=== PATIENT | female | born 1985 | race African-American/Black ===

== ENCOUNTER 2020-02-15 01:08 | Emergency (ER) | payer MEDICAID, SELFPAY ==
[2020-02-15] VITALS (12 sets, daily range): BP systolic 104–118; BP diastolic 72–79; PULSE 64–81; RESP 13–18; TEMP 36.1–36.9; O2SAT 98–100; BMI 23.3
--- NOTE | 2020-02-15 01:30 | ED.VIS.GEN ---
History of Present Illness Chief Complaint: Mental Health Informant: Patient, Family Narrative: 34-year-old female presents to the emergency department with her sister for mental health evaluation. Patient is seen at the counseling center. She tells me she has a history of anxiety. Her sister tells me that the patient has had declining mental health over the past month. She last saw her counselor a week ago. Family is describing erratic behavior and report that the patient is causing emotional and physical disturbances in the house. She has threatened to kill her sister. Family also reports suicidal thoughts. Patient does not endorse that to me. Past Medical History - Allergies and Home Meds Allergies/Adverse Reactions: Allergies lactose Adverse Reaction (Verified 02/15/20 01:15) Diarrhea Primary Care Physician: Luciano Whitehead MD [Primary Care Provider] - Prior records reviewed: Yes Surgical History: noncontributory Lives: With Family Smoking Status: Former smoker Drugs: None Review of Systems General: Denies: Chills, Fever, Sweats Eyes: Denies: Visual changes - bilaterally, Diplopia ENT: Denies: Rhinorrhea, Sore throat Cardiovascular: Denies: Chest pain, Palpitations Respiratory: Denies: Dyspnea, Cough, Dyspnea on exertion Gastrointestinal: Reports: Constipation. Denies: Abdominal pain, Nausea, Vomiting, Diarrhea, Melena, Hematochezia Genitourinary: Denies: Dysuria, Hematuria, Frequency Musculoskeletal: Denies: Back pain, Extremity Pain Skin: Denies: Rash, Wounds Neurological: Denies: Headache, Weakness, Numbness Psych: Reports: Depression, Anxiety, - - Insomnia. Denies: Suicidal thoughts, Suicidal ideations Physical Exam Vital Signs/Narrative: Vital Signs Temp Pulse Resp Pulse Ox 02/15/20 01:09 97.0 F L 69 16 100 Inital Vital Signs reviewed: Yes General: Well nourished, Well developed, No Acute Distress, - - Patient appears internally stimulated Head: Normocephalic, Atraumatic Eyes: Perrl, EOMI ENT: Moist mucous membranes, No rhinorrhea Neck: Supple, Nontender Cardiovascular: Regular rate, Regular rhythm, No murmurs Respiratory: No distress, CTA bilaterally, Chest nontender Abdomen: Soft, Nontender, Nondistended, Normal bowel sounds Back: Nontender, Normal Inspection Extremities: Nontender, No edema Skin: Normal color, No rash Neurological: Alert, Oriented x3, Cranial nerves II-XII grossly intact, Normal Strength, Normal Sensation Psychological: - - Blunted affect Diagnostic/Tx/Re-eval Laboratory Last Values WBC 4.4 K/mm3 (4.4-11.0) 02/15/20 01:25 RBC 4.23 M/mm3 (4.2-5.4) 02/15/20 01:25 Hgb 9.2 g/dL (12.0-15.0) L 02/15/20 01:25 Hct 31.4 % (37-47) L 02/15/20 01:25 MCV 74.2 fL (81-99) L 02/15/20 01:25 MCH 21.7 pg (27.0-32.0) L 02/15/20 01:25 MCHC 29.3 g/dL (32-36) L 02/15/20 01:25 RDW Std Deviation 52.5 fl (35.1-43.9) H 02/15/20 01:25 RDW Coeff of Dina 19.7 % (11.6-14.6) H 02/15/20 01:25 Plt Count 244 K/mm3 (150-450) 02/15/20 01:25 MPV 9.6 fl (6.2-12.0) 02/15/20 01:25 Immature Gran % (Auto) 0.200 % (0.0-0.9) 02/15/20 01:25 Neut % (Auto) 38.6 % (47-70) L 02/15/20 01:25 Lymph % (Auto) 46.3 % (19-41) H 02/15/20 01:25 [place] % (Auto) 11.7 % (0-10) H 02/15/20 01:25 Eos % (Auto) 2.7 % (0-5) 02/15/20 01:25 Baso % (Auto) 0.5 % (0-1) 02/15/20 01:25 Absolute Neuts (auto) 1.7 X10^3/uL (2.0-7.7) L 02/15/20 01:25 Absolute Lymphs (auto) 2.05 X10^3/uL (0.83-4.51) 02/15/20 01:25 Nucleated RBC % 0 % (0-5) 02/15/20 01:25 Sodium 139 mmol/L (136-145) 02/15/20 01:25 Potassium 3.9 mmol/L (3.5-5.1) 02/15/20 01:25 Chloride 108 mmol/L (98-107) H 02/15/20 01:25 Carbon Dioxide 26.0 mmol/L (21.0-32.0) 02/15/20 01:25 Anion Gap 5 (5-15) 02/15/20 01:25 BUN 7 mg/dL (7-18) 02/15/20 01:25 Creatinine 0.80 mg/dL (0.55-1.02) 02/15/20 01:25 Estim Creat Clear Calc 94.51 ml/min 02/15/20 01:25 Est GFR (MDRD) Af Amer 106 mL/min (>60) 02/15/20 01:25 Est GFR (MDRD) Non-Af 88 mL/min (>60) 02/15/20 01:25 BUN/Creatinine Ratio 8.8 RATIO (10-20) L 02/15/20 01:25 Glucose 102 mg/dL (74-106) 02/15/20 01:25 Calcium 8.9 mg/dL (8.5-10.1) 02/15/20 01:25 Total Bilirubin 0.20 mg/dL (0.20-1.00) 02/15/20 01:25 AST 11 U/L (15-37) L 02/15/20 01:25 ALT 15 U/L (13-56) 02/15/20 01:25 Alkaline Phosphatase 74 U/L (45-117) 02/15/20 01:25 Total Protein 7.4 g/dL (6.4-8.2) 02/15/20 01:25 Albumin 3.8 g/dL (3.2-5.0) 02/15/20 01:25 Globulin 3.6 g/dL (2.2-4.2) 02/15/20 01:25 Albumin/Globulin Ratio 1.1 RATIO (0.9-2.4) 02/15/20 01:25 Serum , Qual NEGATIVE Negative 02/15/20 01:25 Urine Color Yellow (Yellow) 02/15/20 02:15 Urine Clarity Clear (Clear) 02/15/20 02:15 Urine pH 7.0 (5.0 - 8.0) 02/15/20 02:15 Ur Specific [place] 1.005 (1.002-1.030) 02/15/20 02:15 Urine Protein Negative mg/dl (Negative) 02/15/20 02:15 Urine Glucose (UA) Normal mg/dl (Normal) 02/15/20 02:15 Urine Ketones Negative mg/dl (Negative) 02/15/20 02:15 Urine Occult Blood Negative /ul (Negative) 02/15/20 02:15 Urine Nitrite Negative (Negative) 02/15/20 02:15 Urine Bilirubin Negative mg/dL (Negative) 02/15/20 02:15 Urine Urobilinogen Normal mg/dl (Normal) 02/15/20 02:15 Ur Leukocyte Esterase Negative /ul (Negative) 02/15/20 02:15 Urine RBC 0 SEEN /hpf (0-5) 02/15/20 02:15 Urine WBC 0 SEEN /hpf (0-5) 02/15/20 02:15 Ur Squamous Epith Cells 0 SEEN /hpf (5-10) 02/15/20 02:15 Urine Bacteria 0 SEEN /hpf (None Seen) 02/15/20 02:15 Urine Mucus 0 SEEN /hpf (<or=2+) 02/15/20 02:15 Urine Opiates Screen NEGATIVE (< 300 ng/mL) 02/15/20 02:15 Urine Methadone Screen NEGATIVE (< 300 ng/mL) 02/15/20 02:15 Ur Barbiturates Screen NEGATIVE (< 200 ng/mL) 02/15/20 02:15 Ur Phencyclidine Scrn NEGATIVE (< 25 ng/mL) 02/15/20 02:15 Ur Amphetamines Screen NEGATIVE (<1000 ng/mL) 02/15/20 02:15 U Methamphetamin-MDMA NEGATIVE (< 500 ng/mL) 02/15/20 02:15 U Benzodiazepines Scrn NEGATIVE (< 200 ng/mL) 02/15/20 02:15 Urine Cocaine Screen NEGATIVE (< 300 ng/mL) 02/15/20 02:15 U Cannabinoids Screen NEGATIVE (< 50 ng/mL) 02/15/20 02:15 Ur Drug Screen Comment 02/15/20 02:15 Ethyl Alcohol < 3.0 mg/dL 02/15/20 01:25 - Medical Decision Making Psychiatric screening labs were obtained. She is cleared for crisis evaluation. ED Disposition - Plan for ED Patient: Diagnosis: Depression, Anxiety, Shawna Referrals: Luciano Whitehead MD [Primary Care Provider] -
[2020-02-15 01:33] LABS: Absolute Lymphocyte Count 2.05 X10^3/uL (0.83-4.51); Absolute Neutrophil Count 1.7 X10^3/uL (2.0-7.7); Basophil# 0.02 X10^3/uL; Basophil% 0.5 % (0-1); Eosinophil# 0.12 X10^3/uL; Eosinophils% 2.7 % (0-5); Hematocrit 31.4 % (37-47); Hemoglobin 9.2 g/dL (12.0-15.0); Lymphocyte # 2.05 X10^3/ul (4.0); Lymphocyte % 46.3 % (19-41); Mean Corp Hgb Conc 29.3 g/dL (32-36); Mean Corpuscular Hgb 21.7 pg (27.0-32.0); Mean Corpuscular Volume 74.2 fL (81-99); Mean Platelet Vol. 9.6 fl (6.2-12.0); Monocyte# 0.52 X10^3/uL; Monocyte% 11.7 % (0-10); NRBC Flagged by Analyzer 0 % (0-5); Neutrophil # 1.71 X10^3/uL (2.7-7.7); Neutrophil % 38.6 % (47-70); Platelet Count 244 K/mm3 (150-450); RBC Distribution Width CV 19.7 % (11.6-14.6); RBC Distribution Width SD 52.5 fl (35.1-43.9); Red Blood Count 4.23 M/mm3 (4.2-5.4); White Blood Count 4.4 K/mm3 (4.4-11.0)
[2020-02-15 02:16] LABS: Internal QC Validated? YES +Cl - CLEAR BKGD; Pregnancy, Serum, hCG Quali. NEGATIVE Negative
[2020-02-15 02:18] LABS: Bacteria 0 SEEN /hpf (None Seen); Mucous, Urine 0 SEEN /hpf (<or=2+); Red Blood Cells-Urine 0 SEEN /hpf (0-5); Squamous Epithelial Cells - UA 0 SEEN /hpf (5-10); White Blood Cells 0 SEEN /hpf (0-5)
[2020-02-15 02:20] LABS: Alcohol, Blood (Medical)-Serum < 3.0 mg/dL
[2020-02-15 02:24] LABS: ALB/GLOB Ratio 1.1 RATIO (0.9-2.4); AST(SGOT) 11 U/L (15-37); Alanine Aminotransfer ALT/SGPT 15 U/L (13-56); Albumin, Serum 3.8 g/dL (3.2-5.0); Alkaline Phosphatase 74 U/L (45-117); Anion Gap 5 (5-15); BUN 7 mg/dL (7-18); BUN/Creat Ratio 8.8 RATIO (10-20); Calcium,Total 8.9 mg/dL (8.5-10.1); Chloride 108 mmol/L (98-107); EST Glomerular Filtration Rate 88 mL/min (>60); Est Glom Filt Rate - Afr Amer 106 mL/min (>60); Estimated Creatinine Clearance 94.51 ml/min; Globulin 3.6 g/dL (2.2-4.2); Glucose 102 mg/dL (74-106); Potassium 3.9 mmol/L (3.5-5.1); Protein, Total 7.4 g/dL (6.4-8.2); Sodium Level 139 mmol/L (136-145)
[2020-02-15 02:24] LABS: Color, Urine Yellow (Yellow); Glucose, Dipstick Normal (Normal); Ketone-Dipstick Negative (Negative); Leukocyte Esterase-Dipstick Negative /ul (Negative); Nitrite-Dipstick Negative (Negative); Occult Blood-Urine Negative /ul (Negative); Protein-Dipstick Negative (Negative); Specific Gravity, Urine 1.005 (1.002-1.030); Urine Bilirubin Dipstick Negative (Negative); Urine Clarity Clear (Clear); Urine Urobilinogen Normal (Normal)
[2020-02-15 02:27] LABS: Vista UDS pH Range 7
[2020-02-15 02:37] LABS: Amphetamine Urine VISTA NEGATIVE (<1000 ng/mL); Barbiturate Urine VISTA NEGATIVE (< 200 ng/mL); Benzodiazepine Urine VISTA NEGATIVE (< 200 ng/mL); Cocaine Urine VISTA NEGATIVE (< 300 ng/mL); Ecstacy Urine VISTA NEGATIVE (< 500 ng/mL); Methadone Urine VISTA NEGATIVE (< 300 ng/mL); PCP Urine VISTA NEGATIVE (< 25 ng/mL); THC Urine VISTA NEGATIVE (< 50 ng/mL)
--- NOTE | 2020-02-15 10:46 | NURSING ---
PT IS PENDING ACCEPTANCE WITH [facility]
== END 2020-02-15 14:43 ==
PROVIDERS: Emergency Provider Emergency Medicine; PCP Family Medicine
DX: F32.9 Major depressive disorder, single episode, unspecified (principal); F41.9 Anxiety disorder, unspecified; Z79.899 Other long term (current) drug therapy; Z87.891 Personal history of nicotine dependence
CPT/HCPCS: 36415; 80053; 80307; 80320; 81001; 84703; 85025; 99284; G0480

== ENCOUNTER 2020-02-28 20:00 | Emergency (ER) | payer MEDICAID, SELFPAY ==
[2020-02-15 01:09] VITALS: BMI 23.3
[2020-02-28 20:01] VITALS: BP 123/79; PULSE 89; RESP 16; TEMP 35.8; O2SAT 100; BMI 22.1
--- NOTE | 2020-02-28 20:32 | ED.DCSUM_ITS ---
- ER Visit Summary Date of Service: 02/28/20 Chief Complaint: Tired History of Present Illness: The patient is a [address] Whitehead in a counseling center. Last week she was admitted to [facility] and was placed on propranolol for a high heart rate. She is taking 20 mg twice a day. Her last dose was at 11:00 this morning. She reports that she feels very tired and fatigued after taking this. She denies feeling depressed. No suicidal or homicidal ideation. No auditory hallucinations. Review of systems: General: No fever, chills, cold sweats. Cardiovascular: No chest pain, palpitations. Respiratory: No cough, shortness of breath, dyspnea on exertion. Gastrointestinal: No abdominal pain, nausea, vomiting, diarrhea, melena, or hematochezia. Genitourinary: No dysuria, frequency, hematuria. Skin: No rash. Neuro: No headache, numbness, weakness. Physical Examination: Vitals: Stable. Afebrile. General: Well-nourished and well-developed. Head: Normocephalic atraumatic. Neck: Supple, no lymphadenopathy. No JVD. Nontender. Cardiovascular: Regular rate and rhythm. No murmurs. Respiratory: No respiratory distress. Clear to auscultation bilaterally. Abdominal: Soft, nontender, nondistended, normal bowel sounds. No guarding, rebound, or peritoneal signs. Back: Nontender. Extremities: Nontender, no edema. Skin: Normal color, no rash. Neurologic: Alert and oriented ?3. Cranial nerves II through XII are intact. Normal strength and sensation. Psych: Flat affect. Emergency Department Course and Treatment: I reviewed propranolol and it does show fatigue is one of the common adverse reactions to this. Also increasing depression as a side effect of this as well. Given the patient's history of depression and suicidal ideation I do not think the propranolol is a good choice for a beta-myles for her if she needs to be on 1. I discussed this with the patient. I reviewed her vital signs from her last visit and her heart rate was in the 70s to 80s. At this time I am going to stop the propranolol and not put her on another beta-myles. Treatment Plan: Patient will be discharged with instructions to throw the propranolol away. Follow-up with her primary care physician in 3 days for another exam. Return to the emergency department for any worsening symptoms. Disposition: To home in improved and stable condition. Impression: 1. Adverse reaction to propranolol. This note was generated with Grabbed dictation software. It may contain incorrect words, spelling, and punctuation that were not noted in review of the chart prior to signing ED Disposition - Plan for ED Patient: Instructions: ED Drug React Adverse Other Referrals: Luciano Whitehead MD [Primary Care Provider] - 3-5 Days Additional Instructions: Stop taking propranolol and throw your bottle away.
== END 2020-02-28 21:24 | disposition home or self-care (01) ==
LOC: ED 20:33
PROVIDERS: Emergency Provider Emergency Medicine; PCP Family Medicine
DX: R53.83 Other fatigue (principal); T44.7X5A Adverse effect of beta-adrenoreceptor antagonists, initial encounter; Y92.9 Unspecified place or not applicable; F32.9 Major depressive disorder, single episode, unspecified; F41.9 Anxiety disorder, unspecified; Z79.899 Other long term (current) drug therapy
CPT/HCPCS: 99282; A4216

== ENCOUNTER 2020-03-05 03:52 | Emergency (ER) | payer MEDICAID, SELFPAY ==
[2020-03-05 03:54] VITALS: BP 120/72; PULSE 111; RESP 20; TEMP 37.3; O2SAT 100; BMI 22.4
--- NOTE | 2020-03-05 04:03 | CT_ITS ---
STUDY: CT BRAIN WITHOUT CONTRAST REASON FOR EXAM: Female, 35 years old. SEIZURE-HAS HX AND TAKES MEDS RADIATION DOSAGE (If Supplied By Facility): CTDIvol = ( 44.99 ) mGy, DLP = ( 829.85 ) mGycm TECHNIQUE: Transaxial CT imaging of the brain was performed without administration of intravenous contrast material. Individualized dose optimization techniques were used for this CT. COMPARISON: No relevant priors. FINDINGS: Normal soft tissue structures. Normal calvarium. Normal size ventricles and extra-axial spaces for the patient''s age. Normal white matter tracts of the cerebral hemispheres. Normal basal ganglia and thalami. Normal brainstem. Normal cerebellum. There is no intracranial hemorrhage. There are no findings of an acute ischemic infarction. Normal visualized paranasal sinuses. CT/Brain/Head without Contrast IMPRESSION: Normal unenhanced CT scan of the brain. Electronically Signed: Shana Steiner, at 5:26 EST Tel , Service support ,
[2020-03-05 04:17] LABS: Absolute Lymphocyte Count 1.62 X10^3/uL (0.83-4.51); Basophil# 0.02 X10^3/uL; Basophil% 0.4 % (0-1); Eosinophil# 0.07 X10^3/uL; Eosinophils% 1.4 % (0-5); Hematocrit 32.6 % (37-47); Hemoglobin 9.5 g/dL (12.0-15.0); Lymphocyte # 1.62 X10^3/ul (4.0); Lymphocyte % 31.5 % (19-41); Mean Corp Hgb Conc 29.1 g/dL (32-36); Mean Corpuscular Hgb 22.1 pg (27.0-32.0); Mean Platelet Vol. 9.9 fl (6.2-12.0); Monocyte% 7.8 % (0-10); NRBC Flagged by Analyzer 0 % (0-5); Neutrophil # 2.95 X10^3/uL (2.7-7.7); Neutrophil % 57.2 % (47-70); Platelet Count 343 K/mm3 (150-450); RBC Distribution Width CV 19.6 % (11.6-14.6); Red Blood Count 4.29 M/mm3 (4.2-5.4); White Blood Count 5.2 K/mm3 (4.4-11.0)
[2020-03-05] MEDS: 0.9% Normal Saline 1,000 ML 1000 ML IV (04:23)
[2020-03-05] MEDS: LORazepam 2 MG/ML Syringe 0.5 MG IV (04:24)
[2020-03-05 04:37] LABS: ALB/GLOB Ratio 1.1 RATIO (0.9-2.4); AST(SGOT) 9 U/L (15-37); Alanine Aminotransfer ALT/SGPT 17 U/L (13-56); Albumin, Serum 3.9 g/dL (3.2-5.0); Alkaline Phosphatase 57 U/L (45-117); Anion Gap 7 (5-15); BUN 6 mg/dL (7-18); BUN/Creat Ratio 7.3 RATIO (10-20); Calcium,Total 8.8 mg/dL (8.5-10.1); Chloride 104 mmol/L (98-107); Creatinine, Serum 0.82 mg/dL (0.55-1.02); EST Glomerular Filtration Rate 85 mL/min (>60); Est Glom Filt Rate - Afr Amer 103 mL/min (>60); Estimated Creatinine Clearance 91.35 ml/min; Globulin 3.7 g/dL (2.2-4.2); Glucose 106 mg/dL (74-106); Potassium 4.1 mmol/L (3.5-5.1); Protein, Total 7.6 g/dL (6.4-8.2); Sodium Level 137 mmol/L (136-145)
[2020-03-05 04:50] LABS: Lactic Acid 3.5 mmol/L (0.4-1.9)
--- NOTE | 2020-03-05 04:56 | ED.DCSUM_ITS ---
History of Present Illness Chief Complaint: Seizure Informant: Patient, Family Onset: Today Context: Sudden Onset Current Severity: Mild Maximum Severity: Moderate Narrative: Patient is a 35-year-old female with medical history significant for questionable seizure disorder and underlying psychiatric disease. The patient was recently hospitalized for behavioral disturbance. At that point, she was started on propanolol and Risperdal. She was having increasing fatigue and generalized malaise. She was actually seen here after psychiatric hospitalization. Her propanolol was stopped. Her sister states that she has been doing better, but tonight she heard her making noises in her room. She felt that she was having a seizure. On squad arrival, the patient was postictal. By arrival here, she is alert and awake. She was on Klonopin before for seizure disorder, but that was stopped when she was admitted to psychiatry. She is currently not on any antiepileptics. Patient denies any drug or alcohol use. She denies being suicidal homicidal. Prior similar symptoms: Yes Recent Illness/Hospitalization: No Past Medical History - Allergies and Home Meds Allergies/Adverse Reactions: Allergies lactose Adverse Reaction (Verified 03/05/20 03:54) Diarrhea Primary Care Physician: Shashi Foster MD [STAFF PHYSICIAN] - Prior records reviewed: Yes Past Medical History: - - Seizures, behavioral disturbance Surgical History: noncontributory Smoking Status: Never smoker Review of Systems General: Denies: Chills, Fever, Sweats Eyes: Denies: Visual changes - bilaterally, Diplopia ENT: Denies: Rhinorrhea, Sore throat Cardiovascular: Denies: Chest pain, Palpitations Respiratory: Denies: Dyspnea, Cough, Dyspnea on exertion Gastrointestinal: Denies: Abdominal pain, Nausea, Vomiting, Diarrhea, Melena, Hematochezia Genitourinary: Denies: Dysuria, Hematuria, Frequency Musculoskeletal: Denies: Back pain, Extremity Pain Skin: Denies: Rash, Wounds Neurological: Denies: Headache, Weakness, Numbness Physical Exam Vital Signs/Narrative: Vital Signs Temp Pulse Resp BP Pulse Ox 03/05/20 03:54 99.1 F 111 H 20 H 120/72 100 Inital Vital Signs reviewed: Yes General: Well nourished, Well developed, No Acute Distress Head: Normocephalic, Atraumatic Eyes: Perrl, EOMI ENT: Moist mucous membranes, No rhinorrhea Neck: Supple, Nontender Cardiovascular: Regular rate, Regular rhythm, No murmurs Respiratory: No distress, CTA bilaterally, Chest nontender Abdomen: Soft, Nontender, Nondistended, Normal bowel sounds Back: Nontender, Normal Inspection Extremities: Nontender, No edema Skin: Normal color, No rash Neurological: Alert, Oriented x3, Cranial nerves II-XII grossly intact, Normal Strength, Normal Sensation Psychological: Normal affect, Normal Mood Diagnostic/Tx/Re-eval Clinical Impression(s) from Imaging Studies Brain CT 03/05/20 04:03 IMPRESSION: Normal unenhanced CT scan of the brain. Electronically Signed: Shana Steiner, at 5:26 EST Tel , Service support , Abnormal Lab Results 03/05/20 03/05/20 03/05/20 04:03 04:03 04:03 WBC 5.2 RBC 4.29 Hgb 9.5 L Hct 32.6 L MCV 76.0 L MCH 22.1 L MCHC 29.1 L RDW Std Deviation 54.0 H RDW Coeff of Dina 19.6 H Plt Count 343 MPV 9.9 Immature Gran % (Auto) 1.700 H Neut % (Auto) 57.2 Lymph % (Auto) 31.5 [place] % (Auto) 7.8 Eos % (Auto) 1.4 Baso % (Auto) 0.4 Absolute Neuts (auto) 3.0 Absolute Lymphs (auto) 1.62 Nucleated RBC % 0 Sodium 137 Potassium 4.1 Chloride 104 Carbon Dioxide 26.0 Anion Gap 7 BUN 6 L Creatinine 0.82 Estim Creat Clear Calc 91.35 Est GFR (MDRD) Af Amer 103 Est GFR (MDRD) Non-Af 85 BUN/Creatinine Ratio 7.3 L Glucose 106 Lactic Acid 3.5 H* Calcium 8.8 Total Bilirubin 0.30 AST 9 L ALT 17 Alkaline Phosphatase 57 Total Protein 7.6 Albumin 3.9 Globulin 3.7 Albumin/Globulin Ratio 1.1 Urine Color Urine Clarity Urine pH Ur Specific [place] Urine Protein Urine Glucose (UA) Urine Ketones Urine Occult Blood Urine Nitrite Urine Bilirubin Urine Urobilinogen Ur Leukocyte Esterase Urine RBC Urine WBC Ur Squamous Epith Cells Urine Bacteria Urine Mucus 12/04/20 05:26 WBC RBC Hgb Hct MCV MCH MCHC RDW Std Deviation RDW Coeff of Dina Plt Count MPV Immature Gran % (Auto) Neut % (Auto) Lymph % (Auto) [place] % (Auto) Eos % (Auto) Baso % (Auto) Absolute Neuts (auto) Absolute Lymphs (auto) Nucleated RBC % Sodium Potassium Chloride Carbon Dioxide Anion Gap BUN Creatinine Estim Creat Clear Calc Est GFR (MDRD) Af Amer Est GFR (MDRD) Non-Af BUN/Creatinine Ratio Glucose Lactic Acid Calcium Total Bilirubin AST ALT Alkaline Phosphatase Total Protein Albumin Globulin Albumin/Globulin Ratio Urine Color Yellow Urine Clarity Clear Urine pH 6.0 Ur Specific [place] 1.015 Urine Protein 30 H Urine Glucose (UA) Normal Urine Ketones Negative Urine Occult Blood 250 H Urine Nitrite Negative Urine Bilirubin Negative Urine Urobilinogen Normal Ur Leukocyte Esterase Negative Urine RBC 0 SEEN Urine WBC 0-5 SEEN Ur Squamous Epith Cells 0-5 SEEN Urine Bacteria 1+ Urine Mucus 0 SEEN - Medical Decision Making Patient did have a small evidence of tongue biting. I do feel that she likely had a seizure. She was on Lamictal, but that has since been stopped at least a year ago. It sounds like she has been having some partial seizures and this 1 secondarily generalized. Patient underwent metabolic work-up. She does have mild elevation of her lactic consistent with seizure. Noncontrast head CT was negative. The patient was observed and is back to baseline. She is not on antiepileptics with a history of epilepsy. I do feel the most reasonable thing would be to start her on Keppra and give her outpatient neurology follow-up. The patient is comfortable with this plan of care and will be discharged home. Impression 1. Breakthrough seizure ED Disposition - Plan for ED Patient: Disposition: Home or Assisted Living Instructions: ED Seizure, Recurrent (Adult) Prescriptions: Levetiracetam [Keppra] 500 mg PO BID #60 tab Prescription Printed Referrals: Shashi Foster MD [STAFF PHYSICIAN] -
[2020-03-05 05:41] LABS: Mucous, Urine 0 SEEN /hpf (<or=2+); Red Blood Cells-Urine 0 SEEN /hpf (0-5)
[2020-03-05 05:51] LABS: Color, Urine Yellow (Yellow); Glucose, Dipstick Normal (Normal); Ketone-Dipstick Negative (Negative); Leukocyte Esterase-Dipstick Negative /ul (Negative); Nitrite-Dipstick Negative (Negative); Occult Blood-Urine 250 /ul (Negative); Protein-Dipstick 30 mg/dl (Negative); Specific Gravity, Urine 1.015 (1.002-1.030); Urine Bilirubin Dipstick Negative (Negative); Urine Clarity Clear (Clear); Urine Urobilinogen Normal (Normal)
[2020-03-05 05:59] LABS: Bacteria 1+ /hpf (None Seen); Squamous Epithelial Cells - UA 0-5 SEEN /hpf (5-10); White Blood Cells 0-5 SEEN /hpf (0-5)
[2020-03-05 06:15] VITALS: BP 117/70; PULSE 86; RESP 16; O2SAT 100
[2020-03-05 08:12] LABS: Reflex Lactate? Y
== END 2020-03-05 06:20 | disposition home or self-care (01) ==
LOC: ED 04:28
PROVIDERS: Emergency Provider Emergency Medicine
DX: G40.909 Epilepsy, unspecified, not intractable, without status epilepticus (principal); F99 Mental disorder, not otherwise specified; Z79.899 Other long term (current) drug therapy
CPT/HCPCS: 70450; 80053; 81001; 83605; 85025; 96361; 96374; 99285; J7030; J7050; A4216

== ENCOUNTER 2020-03-08 02:45 | Emergency (ER) | payer MEDICAID, SELFPAY ==
[2020-03-08 02:45] VITALS: BP 118/74; PULSE 92; RESP 18; TEMP 36.3; O2SAT 100; BMI 22.8
--- NOTE | 2020-03-08 03:01 | ED.RN ---
PT GAVE PERMISSION TO TALK WITH DAUGHTER, MADONNA. SPOKE WITH HER, SISTER REITERATED ANXIETY AND UNCONTROLLED MOVEMENTS.
--- NOTE | 2020-03-08 03:03 | ED.VIS.GEN ---
History of Present Illness Chief Complaint: Mental Health Informant: Patient Narrative: 35-year-old female presents with concern for restlessness. Patient was recently started on Risperdal after an inpatient psychiatric admission. States that she has been having difficulty controlling her movements. Patient does take benztropine at home 0.5 mg but it is not been helping. Denies any suicidal or homicidal ideation. Past Medical History - Allergies and Home Meds Allergies/Adverse Reactions: Allergies lactose Adverse Reaction (Verified 03/05/20 03:54) Diarrhea Primary Care Physician: Luciano Whitehead MD [Primary Care Provider] - Prior records reviewed: Yes Past Medical History: - - anxiety and depression Surgical History: noncontributory Lives: With Family Smoking Status: Never smoker Alcohol: None Drugs: None Review of Systems General: Denies: Chills, Fever, Sweats Eyes: Denies: Visual changes - bilaterally, Diplopia ENT: Denies: Rhinorrhea, Sore throat Cardiovascular: Denies: Chest pain, Palpitations Respiratory: Denies: Dyspnea, Cough, Dyspnea on exertion Gastrointestinal: Denies: Abdominal pain, Nausea, Vomiting, Diarrhea, Melena, Hematochezia Genitourinary: Denies: Dysuria, Hematuria, Frequency Musculoskeletal: Denies: Back pain, Extremity Pain Skin: Denies: Rash, Wounds Neurological: Denies: Headache, Weakness, Numbness Physical Exam Vital Signs/Narrative: Vital Signs Temp Pulse Resp BP Pulse Ox 03/08/20 02:45 97.4 F L 92 18 118/74 100 Inital Vital Signs reviewed: Yes General: Well nourished, Well developed, No Acute Distress Head: Normocephalic, Atraumatic Eyes: Perrl, EOMI ENT: Moist mucous membranes, No rhinorrhea Neck: Supple, Nontender Cardiovascular: Regular rate, Regular rhythm, No murmurs Respiratory: No distress, CTA bilaterally, Chest nontender Abdomen: Soft, Nontender, Nondistended, Normal bowel sounds Back: Nontender, Normal Inspection Extremities: Nontender, No edema Skin: Normal color, No rash Neurological: Alert, Oriented x3, Cranial nerves II-XII grossly intact, Normal Strength, Normal Sensation Psychological: Normal affect, Normal Mood, - - anxious Diagnostic/Tx/Re-eval - Medical Decision Making Appears well and nontoxic. Vital signs within normal limits. Patient is likely experiencing akathisia secondary to her Risperdal. She will be given low-dose clonazepam for a short period until she can follow-up with her primary care provider. Spoke with her sister who helps take care of her who states that this is the reason for her visit and that she was not sure she takes the medication. Patient was recently started on Keppra but the patient is concerned about taking it given the high dose. This was discussed with the patient and she will take this medication from here on out. Patient agreeable with this plan and discharged home in stable condition. Impression: 1. Akathisia 2. Drug side effect ED Disposition - Plan for ED Patient: Disposition: Home or Assisted Living Instructions: Risperidone Oral tablet Prescriptions: Clonazepam 0.25 mg PO BID #14 tab Prescription Printed Referrals: Luciano Whitehead MD [Primary Care Provider] - As soon as possible Additional Instructions: Please see Dr. Ventura DC as he can titrate this medication as needed for your symptoms.
[2020-03-08] MEDS: clonazePAM 0.5 MG Tablet PO (03:33)
--- NOTE | 2020-03-08 03:40 | ED.RN ---
SISTER STATES IT TOOK THEM A YEAR TO GET OFF OF KLONOPIN. ONLY WANTS ONE DOSE HERE AND NO RX. PT AND SISTER UNDERSTAND THAT SHE NEEDS TO F/U WITH DR. MARTINES OR [facility] IN AM FOR POSSIBLE MED CHANGE. EXPLAINED TO PATIENT THAT SOMETIMES THE GOOD OF MEDICATION OUT WEIGHT SIDE EFFECTS. START KEPPRA IN AM, EDUCATED PATIENT AND SISTER ABOUT THAT MEDICATION.
== END 2020-03-08 03:42 | disposition home or self-care (01) ==
PROVIDERS: Emergency Provider Emergency Medicine; PCP Family Medicine
DX: G25.71 Drug induced akathisia (principal); T43.595A Adverse effect of other antipsychotics and neuroleptics, initial encounter; Y92.9 Unspecified place or not applicable; F41.9 Anxiety disorder, unspecified; F32.9 Major depressive disorder, single episode, unspecified; Z79.899 Other long term (current) drug therapy
CPT/HCPCS: 99283

== ENCOUNTER 2020-03-11 15:55 | Emergency (ER) | payer MEDICAID, SELFPAY ==
[2020-03-11 15:56] VITALS: BP 118/70; PULSE 91; RESP 16; TEMP 36.9; O2SAT 100; BMI 23.0
[2020-03-11 15:59] VITALS: BP 118/70; PULSE 96; RESP 16; TEMP 36.9; O2SAT 100
--- NOTE | 2020-03-11 16:37 | ED.VIS.GEN ---
History of Present Illness Chief Complaint: General Illness Informant: Patient, Family Narrative: 35-year-old female with history of bipolar disorder presenting with symptoms of tremor, spasms, involuntary movements, sometimes difficulty talking, headache. Patient was previously on clonazepam in January and her psychiatric doctor at the counseling center Jasmyne Alcocer discontinued this. About 12 days later in the month she had a seizure. Patient still on Risperdal 1 mg in the morning and 2 mg nightly since she is having the symptoms they did call the doctor's office and the nurse told them to change the dosing to 1 mg in the morning and 1 mg nightly. Patient continued to have symptoms and called her physician again and they wanted to do 2 mg nightly. This has been over the last 2 days. Patient symptoms are not improving insofar as the tremors and involuntary movements however her depression and anxiety are better. Patient is also on Keppra 500 mg p.o. twice daily states she had a seizure last month. Patient's sister states that this was started from the ER after the seizure. They also state that her psychiatric physician is aware of this medication change. She was referred to a neurologist however she cannot be seen for a couple of months. Past Medical History - Allergies and Home Meds Allergies/Adverse Reactions: Allergies lactose Adverse Reaction (Verified 03/05/20 03:54) Diarrhea Primary Care Physician: Luciano Whitehead MD [Primary Care Provider] - Past Medical History: - - Bipolar disorder Surgical History: noncontributory Lives: With Family Smoking Status: Never smoker Alcohol: None Drugs: None Review of Systems General: Denies: Chills, Fever, Sweats Eyes: Denies: Visual changes - bilaterally, Diplopia ENT: Denies: Rhinorrhea, Sore throat Cardiovascular: Denies: Chest pain, Palpitations Respiratory: Denies: Dyspnea, Cough, Dyspnea on exertion Gastrointestinal: Denies: Abdominal pain, Nausea, Vomiting, Diarrhea, Melena, Hematochezia Genitourinary: Denies: Dysuria, Hematuria, Frequency Skin: Denies: Rash, Wounds Neurological: Reports: Headache, - - Involuntary extremity movements. Shuffling gait, muscle spasms. Denies: Parasthesia, Numbness Psych: Denies: Depression, Anxiety, Suicidal thoughts, Suicidal ideations Physical Exam Vital Signs/Narrative: Vital Signs Temp Pulse Resp BP Pulse Ox 03/11/20 15:59 98.4 F 96 16 118/70 100 03/11/20 15:56 98.4 F 91 16 118/70 100 Inital Vital Signs reviewed: Yes General: Well nourished Head: Normocephalic, Atraumatic Eyes: Perrl, EOMI ENT: Moist mucous membranes, No rhinorrhea Cardiovascular: Regular rate, Regular rhythm Abdomen: Soft, Nontender Back: Nontender, Normal Inspection Extremities: Nontender, No edema Skin: Normal color, No rash Neurological: Alert, Oriented x3, Cranial nerves II-XII grossly intact, - - Involuntary hand and foot movements. Head jerking, shuffling gait. Diagnostic/Tx/Re-eval Laboratory Data 03/11/20 03/11/20 03/11/20 17:05 17:05 17:05 WBC 5.6 RBC 4.00 L Hgb 8.9 L Hct 30.1 L MCV 75.3 L MCH 22.3 L MCHC 29.6 L RDW Std Deviation 51.5 H RDW Coeff of Dina 19.0 H Plt Count 355 MPV 10.3 Immature Gran % (Auto) 0.200 Neut % (Auto) 55.0 Lymph % (Auto) 31.4 [place] % (Auto) 10.2 H Eos % (Auto) 2.5 Baso % (Auto) 0.7 Absolute Neuts (auto) 3.1 Absolute Lymphs (auto) 1.75 Nucleated RBC % 0 Sodium 139 Potassium 4.0 Chloride 106 Carbon Dioxide 30.0 Anion Gap 3 L BUN 5 L Creatinine 0.77 Estim Creat Clear Calc 97.28 Est GFR (MDRD) Af Amer 112 Est GFR (MDRD) Non-Af 92 BUN/Creatinine Ratio 6.5 L Glucose 113 H Calcium 8.8 Magnesium 2.2 Total Bilirubin 0.20 AST 9 L ALT 15 Alkaline Phosphatase 75 Total Creatine Kinase 54 Total Protein 7.3 Albumin 3.7 Globulin 3.6 Albumin/Globulin Ratio 1.0 - Medical Decision Making Patient was discussed with Dr. Jasmyne Alcocer. She recommended changing the patient's medication to Lamictal which she is already ordered to the pharmacy. She recommended I start Abilify 5 mg and the patient can discontinue her Risperdal. This was discussed with the patient and her sister. She will continue her Keppra 500 mg twice daily as well bar 10 mg as needed. Lab work shows she is anemic but she appears to be close to her range only. I do not believe she needs blood transfusion. Her vital signs are stable and she is afebrile. Her electrolytes are normal. Kidney function is normal. Patient will be discharged home with a prescription for Abilify. They are given return precautions. Impression: 1. Medication side effects ED Disposition - Plan for ED Patient: Disposition: Home or Assisted Living Instructions: ED Drug Reaction, Other Referrals: Luciano Whitehead MD [Primary Care Provider] -
[2020-03-11] MEDS: 0.9% Normal Saline 1,000 ML 999 ML IV (17:12)
--- NOTE | 2020-03-11 17:15 | CM.ED ---
SOCIAL WORK Dr. Das requesting this worker [facility] to discuss patient's medications with Brynn Alcocer. Call to Crisis as office is closed, spoke with Cleopatra. Cleopatra reports will send message to Brynn Alcocer NP and request she call ER to speak with Dr. Das. This worker to remain available for needs. Ruben Gallego, CLINICAL TRIAL ASSISTANT, OPERATIONAL INTELLIGENCE OFFICER
[2020-03-11 17:22] LABS: Absolute Lymphocyte Count 1.75 X10^3/uL (0.83-4.51); Absolute Neutrophil Count 3.1 X10^3/uL (2.0-7.7); Basophil# 0.04 X10^3/uL; Basophil% 0.7 % (0-1); Eosinophil# 0.14 X10^3/uL; Eosinophils% 2.5 % (0-5); Hematocrit 30.1 % (37-47); Hemoglobin 8.9 g/dL (12.0-15.0); Lymphocyte # 1.75 X10^3/ul (4.0); Lymphocyte % 31.4 % (19-41); Mean Corp Hgb Conc 29.6 g/dL (32-36); Mean Corpuscular Hgb 22.3 pg (27.0-32.0); Mean Corpuscular Volume 75.3 fL (81-99); Mean Platelet Vol. 10.3 fl (6.2-12.0); Monocyte# 0.57 X10^3/uL; Monocyte% 10.2 % (0-10); NRBC Flagged by Analyzer 0 % (0-5); Neutrophil # 3.07 X10^3/uL (2.7-7.7); Platelet Count 355 K/mm3 (150-450); RBC Distribution Width SD 51.5 fl (35.1-43.9); White Blood Count 5.6 K/mm3 (4.4-11.0)
[2020-03-11 17:49] LABS: AST(SGOT) 9 U/L (15-37); Alanine Aminotransfer ALT/SGPT 15 U/L (13-56); Albumin, Serum 3.7 g/dL (3.2-5.0); Alkaline Phosphatase 75 U/L (45-117); Anion Gap 3 (5-15); BUN 5 mg/dL (7-18); BUN/Creat Ratio 6.5 RATIO (10-20); Calcium,Total 8.8 mg/dL (8.5-10.1); Chloride 106 mmol/L (98-107); Creatinine, Serum 0.77 mg/dL (0.55-1.02); EST Glomerular Filtration Rate 92 mL/min (>60); Est Glom Filt Rate - Afr Amer 112 mL/min (>60); Estimated Creatinine Clearance 97.28 ml/min; Globulin 3.6 g/dL (2.2-4.2); Glucose 113 mg/dL (74-106); Magnesium 2.2 mg/dL (1.6-2.6); Protein, Total 7.3 g/dL (6.4-8.2); Sodium Level 139 mmol/L (136-145)
[2020-03-11 17:54] LABS: CPK Total, Creatine Kinase 54 U/L (26-192)
== END 2020-03-11 20:27 | disposition home or self-care (01) ==
PROVIDERS: Emergency Provider Student in an Organized Health Care Education/Training Program; PCP Family Medicine
DX: G25.1 Drug-induced tremor (principal); R51.9 Headache, unspecified; T43.595A Adverse effect of other antipsychotics and neuroleptics, initial encounter; Y92.9 Unspecified place or not applicable; F31.9 Bipolar disorder, unspecified; G40.909 Epilepsy, unspecified, not intractable, without status epilepticus; Z79.899 Other long term (current) drug therapy
CPT/HCPCS: 80053; 82550; 83735; 85025; 96360; 96361; 99283; J7030; A4216

== ENCOUNTER 2020-03-24 02:17 | Emergency (ER) | payer MEDICAID, SELFPAY ==
--- NOTE | 2020-03-24 06:38 | ED.VISSUMM ---
- ER Visit Summary Date of Service: 03/24/20 Chief Complaint: Anxiety History of Present Illness: The patient is a 35 F presenting with chronic issues with anxiety, but worse in the last couple days with unusual symptoms tonight. She was on risperidone, recently changed from that to Seroquel for her anxiety and bipolar 2 disorder, she has been taking it only for couple days. She has had intermittent twitching/spasms, and tonight she was having spells of staring off into space and not responding to her family although she was still conscious, this would last for a fairly brief period of time. Also they described some movements with her tongue that were unusual and intermittent as well. No fevers or chills, or other illness. No suicidal or homicidal thoughts. Physical Examination: Vital signs normal, patient in no distress, physical exam is normal except for occasional brief upper extremity tremors and spasms that occur bilaterally when they occur. She is able to stick her tongue out straight, she has no dystonia on exam. Her neck is supple, she has full range of motion and no meningismus. She is alert and oriented x3, mentating normally, and the rest of her exam is unremarkable. Test Results: Chemistry panel is normal. Emergency Department Course and Treatment: Since the differential included potassium and calcium abnormalities, chemistries were performed and these were normal. My suspicion is that she is having extraparametal symptoms. It is also possible but less likely that she is having dystonic reaction to the medications. Seroquel is the only medication she currently is on. I treated her here with a dose of Ativan and some Benadryl, she felt much better. She was advised to discontinue the medication and to follow-up with her psychiatrist soon as possible, at least over the phone. They requested a prescription for some Ativan since it is a day or 2 before Sandeep, which I thought was reasonable so a prescription for 9 Ativan was given. Disposition: Home with sister Impression: Anxiety, medication side effect This note was generated with [employer] dictation software. It may contain incorrect words, spelling, and punctuation that were not noted in review of the chart prior to signing ED Disposition - Plan for ED Patient: Disposition: Home or Assisted Living Referrals: Luciano Whitehead MD [Primary Care Provider] - Psychiatrist, your [Other] (shyann)
[2020-03-24 07:44] LABS: Anion Gap 5 (5-15); BUN 4 mg/dL (7-18); BUN/Creat Ratio 5.2 RATIO (10-20); Calcium,Total 8.9 mg/dL (8.5-10.1); Chloride 105 mmol/L (98-107); Creatinine, Serum 0.77 mg/dL (0.55-1.02); EST Glomerular Filtration Rate 92 mL/min (>60); Est Glom Filt Rate - Afr Amer 112 mL/min (>60); Glucose 104 mg/dL (74-106); Potassium 4.3 mmol/L (3.5-5.1); Sodium Level 138 mmol/L (136-145)
== END 2020-03-24 03:40 | disposition home or self-care (01) ==
LOC: ED 05:01
PROVIDERS: Emergency Provider Emergency Medicine; PCP Family Medicine
DX: F41.9 Anxiety disorder, unspecified (principal); T43.595A Adverse effect of other antipsychotics and neuroleptics, initial encounter; Y92.9 Unspecified place or not applicable; F31.9 Bipolar disorder, unspecified; Z79.899 Other long term (current) drug therapy
CPT/HCPCS: 36415; 80048; 99283

== ENCOUNTER 2020-09-23 10:46 | Emergency (ER) | payer MEDICARE, MEDICAID, SELFPAY ==
[2020-09-23] VITALS (7 sets, daily range): BP systolic 111–141; BP diastolic 63–88; PULSE 90–123; RESP 14–17; TEMP 36.3–38; O2SAT 96–100; BMI 21.1
--- NOTE | 2020-09-23 11:04 | EKG12_ITS ---
Test Reason : MENTAL CLEARANCE Blood Pressure : / mmHG Vent. Rate : 099 BPM Atrial Rate : 099 BPM P-R Int : 136 ms QRS Dur : 072 ms QT Int : 342 ms P-R-T Axes : 066 069 053 degrees QTc Int : 438 ms Normal sinus rhythm Normal ECG Confirmed by HARMAN SHAIKH, SHARI ([id number]), editor department BERTIN PEREZ ([id number] on 09/28/2020 3:59:12 PM Referred By: THOMAS Confirmed By:SHARI HAMMER MD
--- NOTE | 2020-09-23 11:06 | EDS_ITS ---
HPI <Dr. Russell Pena DO - Last Filed: 09/25/20 22:35> HPI - Psych History of Present Illness Chief Complaint: Mental Health Informant: family Narrative Narrative: Patient is a 35-year-old female with a past medical history of bipolar disorder who presents to the emergency department with her sister. Over the past few weeks she has been interacting less and less. She has not been conversing well. She has been not eating or drinking well. She has been saying over and over suicidal and acting out cut gonsalves to her wrist. Whenever she comes into the emergency department patient is standing up at bedside. She will home but will not converse at all. Her sister states that her baseline is conversing well and will laugh and talk. She has done this before in the past but never to this severity. She has required inpatient psychiatric stays before. Last time she saw her counselor was in July. Her only medication she is currently on is gabapentin. [facility] <Dr. Russell Pena DO - Last Filed: 09/25/20 22:35> [facility] Medical History (Updated 09/25/20 @ 22:[address] Russell Pena DO) Bipolar depression Home Medications gabapentin 300 mg PO QHS 09/23/20 [History Last Taken Unknown] Allergy/AdvReac Type Severity Reaction Status Date / Time lactose AdvReac Diarrhea Verified 03/05/20 03:54 Social History Smoking Status: Never smoker ROS <Dr. Russell Pena DO - Last Filed: 09/25/20 22:35> ROS ED Review of Systems ROS Unobtainable: due to mental condition EXAM <Dr. Russell Pena DO - Last Filed: 09/25/20 22:35> Physical Exam Narrative Exam Narrative: Patient standing at bedside. She will not follow commands to sit down. She is partially cooperative with examination. Patient does not speak but will hum. Const Vital Signs: 09/23/20 10:47 09/23/20 14:26 09/23/20 15:18 Temperature 97.3 F L 100.4 F H Temperature Source Temporal Temporal Pulse Rate 123 H 100 Respiratory Rate 17 16 16 Blood Pressure 141/88 H 111/63 Blood Pressure Mean 105 79 Pulse Ox 96 100 Oxygen Delivery Method Room Air Room Air 09/23/20 16:06 09/23/20 18:40 09/23/20 19:06 Temperature 98.4 F Temperature Source Temporal Pulse Rate 90 Respiratory Rate 16 14 16 Blood Pressure 117/76 Blood Pressure Mean 89 Pulse Ox 100 Oxygen Delivery Method Room Air 09/23/20 22:09 Temperature 98.2 F Temperature Source Oral Pulse Rate 100 Respiratory Rate 16 Blood Pressure 133/76 H Blood Pressure Mean 95 Pulse Ox 97 Oxygen Delivery Method Room Air Positive well nourished and well developed General Appearance ED: well developed HEENT normocephalic and atraumatic Eyes PERRL and EOMs intact bilaterally Neck supple Resp normal respiratory effort and clear to auscultation bilaterally Cardio Rate: regular rate Rhythm: regular rhythm GI non-distended Extremity normal to inspection Extremity Narrative: Moves all 4 extremities equally. Ambulating on her own power. Neuro Sensorium / Orientation: alert Psych Psych Narrative: Unable to really assess psych as she does not respond to questioning. Appearance: grossly normal Speech: mute Skin Lesions: no lesions Rashes: no rashes <Dr. Kenneth Das, DO - Last Filed: 09/23/20 23:23> Physical Exam Const Vital Signs: 09/23/20 10:47 09/23/20 14:26 09/23/20 15:18 Temperature 97.3 F L 100.4 F H Temperature Source Temporal Temporal Pulse Rate 123 H 100 Respiratory Rate 17 16 16 Blood Pressure 141/88 H 111/63 Blood Pressure Mean 105 79 Pulse Ox 96 100 Oxygen Delivery Method Room Air Room Air 09/23/20 16:06 09/23/20 18:40 09/23/20 19:06 Temperature 98.4 F Temperature Source Temporal Pulse Rate 90 Respiratory Rate 16 14 16 Blood Pressure 117/76 Blood Pressure Mean 89 Pulse Ox 100 Oxygen Delivery Method Room Air 09/23/20 22:09 Temperature 98.2 F Temperature Source Oral Pulse Rate 100 Respiratory Rate 16 Blood Pressure 133/76 H Blood Pressure Mean 95 Pulse Ox 97 Oxygen Delivery Method Room Air MDM <Dr. Russell Pena, DO - Last Filed: 09/25/20 22:35> MDM MDM Narrative Medical decision making narrative: Patient presents to the ED by family for psychiatric assessment. Patient has had a steady decline over the past couple of weeks. She is not talking here in the emergency department. Family states that she keeps repeating that she is suicidal. Will check basic lab work here and plan on acute inpatient psychiatric care. Patient signed out due to end of shift with current labs pending. I did fill out a pink slip for the patient to be placed in acute psychiatric facility. Lab Data Labs: Laboratory Results - last 24 hr 09/23/20 09/23/20 09/23/20 12:55 12:55 12:55 WBC 3.7 L RBC 4.62 Hgb 11.1 L Hct 35.9 L MCV 77.7 L MCH 24.0 L MCHC 30.9 L RDW Std Deviation 51.0 H RDW Coeff of Dina 18.4 H Plt Count 252 MPV 10.5 Immature Gran % (Auto) 0.300 Neut % (Auto) 62.0 Lymph % (Auto) 26.0 [place] % (Auto) 11.1 H Eos % (Auto) 0.3 Baso % (Auto) 0.3 Absolute Neuts (auto) 2.3 Absolute Lymphs (auto) 0.96 Nucleated RBC % 0 PT INR Sodium Potassium Chloride Carbon Dioxide Anion Gap BUN Creatinine Estim Creat Clear Calc Est GFR (MDRD) Af Amer Est GFR (MDRD) Non-Af BUN/Creatinine Ratio Glucose Lactic Acid Calcium Total Bilirubin AST ALT Alkaline Phosphatase Total Protein Albumin Globulin Albumin/Globulin Ratio Serum , Qual NEGATIVE Urine Color Urine Clarity Urine pH Ur Specific [place] Urine Protein Urine Glucose (UA) Urine Ketones Urine Occult Blood Urine Nitrite Urine Bilirubin Urine Urobilinogen Ur Leukocyte Esterase Urine RBC Urine WBC Ur Squamous Epith Cells Amorphous Sediment Urine Bacteria Urine Mucus Urine Opiates Screen Urine Methadone Screen Ur Barbiturates Screen Ur Phencyclidine Scrn Ur Amphetamines Screen U Methamphetamin-MDMA U Benzodiazepines Scrn Urine Cocaine Screen U Cannabinoids Screen Ur Drug Screen Comment Ethyl Alcohol < 3.0 09/23/20 09/23/20 09/23/20 12:55 13:21 13:21 WBC RBC Hgb Hct MCV MCH MCHC RDW Std Deviation RDW Coeff of Dina Plt Count MPV Immature Gran % (Auto) Neut % (Auto) Lymph % (Auto) [place] % (Auto) Eos % (Auto) Baso % (Auto) Absolute Neuts (auto) Absolute Lymphs (auto) Nucleated RBC % PT INR Sodium 140 Potassium 3.6 Chloride 108 H Carbon Dioxide 26.0 Anion Gap 6 BUN 9 Creatinine 0.88 Estim Creat Clear Calc 87.90 Est GFR (MDRD) Af Amer 95 Est GFR (MDRD) Non-Af 78 BUN/Creatinine Ratio 10.2 Glucose 103 Lactic Acid Calcium 9.0 Total Bilirubin 0.20 AST 12 L ALT 14 Alkaline Phosphatase 68 Total Protein 7.4 Albumin 3.9 Globulin 3.5 Albumin/Globulin Ratio 1.1 Serum , Qual Urine Color Yellow Urine Clarity Cloudy Urine pH 6.0 Ur Specific [place] 1.020 Urine Protein 30 H Urine Glucose (UA) Normal Urine Ketones 5 H Urine Occult Blood 250 H Urine Nitrite Positive H Urine Bilirubin Negative Urine Urobilinogen 1 H Ur Leukocyte Esterase 25 H Urine RBC 25-50 SEEN Urine WBC 5-10 SEEN Ur Squamous Epith Cells 5-10 SEEN Amorphous Sediment 2+ URATE Urine Bacteria 3+ Urine Mucus 0 SEEN Urine Opiates Screen NEGATIVE Urine Methadone Screen NEGATIVE Ur Barbiturates Screen NEGATIVE Ur Phencyclidine Scrn NEGATIVE Ur Amphetamines Screen NEGATIVE U Methamphetamin-MDMA NEGATIVE U Benzodiazepines Scrn NEGATIVE Urine Cocaine Screen NEGATIVE U Cannabinoids Screen NEGATIVE Ur Drug Screen Comment Ethyl Alcohol 09/23/20 09/23/20 22:00 22:00 WBC RBC Hgb Hct MCV MCH MCHC RDW Std Deviation RDW Coeff of Dina Plt Count MPV Immature Gran % (Auto) Neut % (Auto) Lymph % (Auto) [place] % (Auto) Eos % (Auto) Baso % (Auto) Absolute Neuts (auto) Absolute Lymphs (auto) Nucleated RBC % PT 14.5 INR 1.2 Sodium Potassium Chloride Carbon Dioxide Anion Gap BUN Creatinine Estim Creat Clear Calc Est GFR (MDRD) Af Amer Est GFR (MDRD) Non-Af BUN/Creatinine Ratio Glucose Lactic Acid 1.1 Calcium Total Bilirubin AST ALT Alkaline Phosphatase Total Protein Albumin Globulin Albumin/Globulin Ratio Serum , Qual Urine Color Urine Clarity Urine pH Ur Specific [place] Urine Protein Urine Glucose (UA) Urine Ketones Urine Occult Blood Urine Nitrite Urine Bilirubin Urine Urobilinogen Ur Leukocyte Esterase Urine RBC Urine WBC Ur Squamous Epith Cells Amorphous Sediment Urine Bacteria Urine Mucus Urine Opiates Screen Urine Methadone Screen Ur Barbiturates Screen Ur Phencyclidine Scrn Ur Amphetamines Screen U Methamphetamin-MDMA U Benzodiazepines Scrn Urine Cocaine Screen U Cannabinoids Screen Ur Drug Screen Comment Ethyl Alcohol EKG Initial EKG: Attestation: I personally reviewed and interpreted this EKG as follows: (Rate of 99 bpm normal sinus rhythm. Normal intervals. Normal axis. No significant ST elevations or depressions.) <Dr. Kenneth Das, DO - Last Filed: 09/23/20 23:23> [facility] Narrative Medical decision making narrative: Patient signed out to me at 1700 hrs. for follow-up on blood work and medical clearance for psychiatric facility given the patient's significant symptoms. Patient has a white blood cell count of 3.7, hemoglobin 11.1, hematocrit 35.9, platelets 252. Serum is negative. Renal function and electrolytes are normal. Lactic acid is normal. Urine drug screen is normal. Coagulation studies are normal. Patient was given first dose of Bactrim here. We did discuss with the accepting hospital that she has a urinary tract infection but I would think that if the urinary tract infection was the source she would be septic and it does not appear that she is. I feel that this is primarily a psychiatric issue. They were willing to accept the patient as long as he gave him a first dose of antibiotics here. She was given Bactrim. She will be transferred in stable condition. She is medically clear. Impression: 1.Acute psychosis 2. UTI Lab Data Attestation: I reviewed the patient's lab results. Labs: Laboratory Results - last 24 hr 09/23/20 09/23/20 09/23/20 12:55 12:55 12:55 WBC 3.7 L RBC 4.62 Hgb 11.1 L Hct 35.9 L MCV 77.7 L MCH 24.0 L MCHC 30.9 L RDW Std Deviation 51.0 H RDW Coeff of Dina 18.4 H Plt Count 252 MPV 10.5 Immature Gran % (Auto) 0.300 Neut % (Auto) 62.0 Lymph % (Auto) 26.0 [place] % (Auto) 11.1 H Eos % (Auto) 0.3 Baso % (Auto) 0.3 Absolute Neuts (auto) 2.3 Absolute Lymphs (auto) 0.96 Nucleated RBC % 0 PT INR Sodium Potassium Chloride Carbon Dioxide Anion Gap BUN Creatinine Estim Creat Clear Calc Est GFR (MDRD) Af Amer Est GFR (MDRD) Non-Af BUN/Creatinine Ratio Glucose Lactic Acid Calcium Total Bilirubin AST ALT Alkaline Phosphatase Total Protein Albumin Globulin Albumin/Globulin Ratio Serum , Qual NEGATIVE Urine Color Urine Clarity Urine pH Ur Specific [place] Urine Protein Urine Glucose (UA) Urine Ketones Urine Occult Blood Urine Nitrite Urine Bilirubin Urine Urobilinogen Ur Leukocyte Esterase Urine RBC Urine WBC Ur Squamous Epith Cells Amorphous Sediment Urine Bacteria Urine Mucus Urine Opiates Screen Urine Methadone Screen Ur Barbiturates Screen Ur Phencyclidine Scrn Ur Amphetamines Screen U Methamphetamin-MDMA U Benzodiazepines Scrn Urine Cocaine Screen U Cannabinoids Screen Ur Drug Screen Comment Ethyl Alcohol < 3.0 09/23/20 09/23/20 09/23/20 12:55 13:21 13:21 WBC RBC Hgb Hct MCV MCH MCHC RDW Std Deviation RDW Coeff of Dina Plt Count MPV Immature Gran % (Auto) Neut % (Auto) Lymph % (Auto) [place] % (Auto) Eos % (Auto) Baso % (Auto) Absolute Neuts (auto) Absolute Lymphs (auto) Nucleated RBC % PT INR Sodium 140 Potassium 3.6 Chloride 108 H Carbon Dioxide 26.0 Anion Gap 6 BUN 9 Creatinine 0.88 Estim Creat Clear Calc 87.90 Est GFR (MDRD) Af Amer 95 Est GFR (MDRD) Non-Af 78 BUN/Creatinine Ratio 10.2 Glucose 103 Lactic Acid Calcium 9.0 Total Bilirubin 0.20 AST 12 L ALT 14 Alkaline Phosphatase 68 Total Protein 7.4 Albumin 3.9 Globulin 3.5 Albumin/Globulin Ratio 1.1 Serum , Qual Urine Color Yellow Urine Clarity Cloudy Urine pH 6.0 Ur Specific [place] 1.020 Urine Protein 30 H Urine Glucose (UA) Normal Urine Ketones 5 H Urine Occult Blood 250 H Urine Nitrite Positive H Urine Bilirubin Negative Urine Urobilinogen 1 H Ur Leukocyte Esterase 25 H Urine RBC 25-50 SEEN Urine WBC 5-10 SEEN Ur Squamous Epith Cells 5-10 SEEN Amorphous Sediment 2+ URATE Urine Bacteria 3+ Urine Mucus 0 SEEN Urine Opiates Screen NEGATIVE Urine Methadone Screen NEGATIVE Ur Barbiturates Screen NEGATIVE Ur Phencyclidine Scrn NEGATIVE Ur Amphetamines Screen NEGATIVE U Methamphetamin-MDMA NEGATIVE U Benzodiazepines Scrn NEGATIVE Urine Cocaine Screen NEGATIVE U Cannabinoids Screen NEGATIVE Ur Drug Screen Comment Ethyl Alcohol 09/23/20 09/23/20 22:00 22:00 WBC RBC Hgb Hct MCV MCH MCHC RDW Std Deviation RDW Coeff of Dina Plt Count MPV Immature Gran % (Auto) Neut % (Auto) Lymph % (Auto) [place] % (Auto) Eos % (Auto) Baso % (Auto) Absolute Neuts (auto) Absolute Lymphs (auto) Nucleated RBC % PT 14.5 INR 1.2 Sodium Potassium Chloride Carbon Dioxide Anion Gap BUN Creatinine Estim Creat Clear Calc Est GFR (MDRD) Af Amer Est GFR (MDRD) Non-Af BUN/Creatinine Ratio Glucose Lactic Acid 1.1 Calcium Total Bilirubin AST ALT Alkaline Phosphatase Total Protein Albumin Globulin Albumin/Globulin Ratio Serum , Qual Urine Color Urine Clarity Urine pH Ur Specific [place] Urine Protein Urine Glucose (UA) Urine Ketones Urine Occult Blood Urine Nitrite Urine Bilirubin Urine Urobilinogen Ur Leukocyte Esterase Urine RBC Urine WBC Ur Squamous Epith Cells Amorphous Sediment Urine Bacteria Urine Mucus Urine Opiates Screen Urine Methadone Screen Ur Barbiturates Screen Ur Phencyclidine Scrn Ur Amphetamines Screen U Methamphetamin-MDMA U Benzodiazepines Scrn Urine Cocaine Screen U Cannabinoids Screen Ur Drug Screen Comment Ethyl Alcohol Discharge Plan Triage Chief Complaint: Mental Health ED Provider: Kenneth Das Dx/Rx/DC Orders Clinical Impression: Psychosis Prescriptions: No Action gabapentin 300 mg capsule 300 mg PO QHS RF: 0 Primary Care Provider: Luciano Whitehead Referrals: Luciano Whitehead MD [Primary Care Provider] - Disposition Disposition: Psychiatric Hospital or Unit Discharge Location: Main Discharge Date/Time: 09/24/20 01:27
--- NOTE | 2020-09-23 11:45 | ED.RN ---
pt with sister in room. pt agitated and walking around room. making paranoid statements to staff. asking who is Gabe Malik to you and multiple questions. will not cooperate with needing blood drawn or IM Haldol. was eventually gently guided to bed and then given the injection. Pt is now awake in bed, allowed blood draw. remains paranoid. sister went to get food. CURING MACHINE OPERATOR at bedside.
[2020-09-23] MEDS: Haloperidol Lactate 5 MG/ML Vial IM (11:57)
[2020-09-23 13:07] LABS: Absolute Lymphocyte Count 0.96 X10^3/uL (0.83-4.51); Absolute Neutrophil Count 2.3 X10^3/uL (2.0-7.7); Basophil# 0.01 X10^3/uL; Basophil% 0.3 % (0-1); Eosinophil# 0.01 X10^3/uL; Eosinophils% 0.3 % (0-5); Hematocrit 35.9 % (37-47); Hemoglobin 11.1 g/dL (12.0-15.0); Lymphocyte # 0.96 X10^3/ul (0.83-4.51); Mean Corp Hgb Conc 30.9 g/dL (32-36); Mean Corpuscular Volume 77.7 fL (81-99); Mean Platelet Vol. 10.5 fl (6.2-12.0); Monocyte# 0.41 X10^3/uL; Monocyte% 11.1 % (0-10); NRBC Flagged by Analyzer 0 % (0-5); Neutrophil # 2.29 X10^3/uL (2.7-7.7); Platelet Count 252 K/mm3 (150-450); RBC Distribution Width CV 18.4 % (11.6-14.6); Red Blood Count 4.62 M/mm3 (4.2-5.4); White Blood Count 3.7 K/mm3 (4.4-11.0)
[2020-09-23 13:20] LABS: ALB/GLOB Ratio 1.1 RATIO (0.9-2.4); AST(SGOT) 12 U/L (15-37); Alanine Aminotransfer ALT/SGPT 14 U/L (13-56); Albumin, Serum 3.9 g/dL (3.2-5.0); Alkaline Phosphatase 68 U/L (45-117); Anion Gap 6 (5-15); BUN 9 mg/dL (7-18); BUN/Creat Ratio 10.2 RATIO (10-20); Chloride 108 mmol/L (98-107); Creatinine, Serum 0.88 mg/dL (0.55-1.02); EST Glomerular Filtration Rate 78 mL/min (>60); Est Glom Filt Rate - Afr Amer 95 mL/min (>60); Globulin 3.5 g/dL (2.2-4.2); Glucose 103 mg/dL (74-106); Potassium 3.6 mmol/L (3.5-5.1); Protein, Total 7.4 g/dL (6.4-8.2); Sodium Level 140 mmol/L (136-145)
[2020-09-23 13:28] LABS: Internal QC Validated? YES +Cl - CLEAR BKGD; Pregnancy, Serum, hCG Quali. NEGATIVE Negative
[2020-09-23 13:30] LABS: Alcohol, Blood (Medical)-Serum < 3.0 mg/dL
[2020-09-23 13:43] LABS: Amphetamine Urine VISTA NEGATIVE (<1000 ng/mL); Barbiturate Urine VISTA NEGATIVE (< 200 ng/mL); Benzodiazepine Urine VISTA NEGATIVE (< 200 ng/mL); Cocaine Urine VISTA NEGATIVE (< 300 ng/mL); Ecstacy Urine VISTA NEGATIVE (< 500 ng/mL); Methadone Urine VISTA NEGATIVE (< 300 ng/mL); PCP Urine VISTA NEGATIVE (< 25 ng/mL); THC Urine VISTA NEGATIVE (< 50 ng/mL); Vista UDS pH Range 5
--- NOTE | 2020-09-23 14:34 | NURSING ---
spoke with Ruth from Crisis about getting pt evaluated
--- NOTE | 2020-09-23 17:25 | ED.RN ---
PT REPORTS INCREASED AGITATION, AND ANXIETY. PT PACING IN ROOM. THIS RN AND SISTER OFFERS EMOTIONAL SUPPORT TO PATIENT. DR. GUZMAN INFORMED.
--- NOTE | 2020-09-23 17:29 | NURSING ---
ARACELI CALLED FROM CRISIS AND SAID SHE REFERRED HER TO [facility]
[2020-09-23] MEDS: LORazepam 2 MG/ML Syringe IM (17:48)
--- NOTE | 2020-09-23 18:25 | ED.RN ---
called meal tray for pt
[2020-09-23 21:06] LABS: Mucous, Urine 0 SEEN /hpf (<or=2+)
[2020-09-23 21:10] LABS: Color, Urine Yellow (Yellow); Glucose, Dipstick Normal (Normal); Ketone-Dipstick 5 mg/dl (Negative); Leukocyte Esterase-Dipstick 25 /ul (Negative); Nitrite-Dipstick Positive (Negative); Occult Blood-Urine 250 /ul (Negative); Protein-Dipstick 30 mg/dl (Negative); Urine Bilirubin Dipstick Negative (Negative); Urine Clarity Cloudy (Clear); Urine Urobilinogen 1 mg/dl (Normal)
[2020-09-23 21:23] LABS: Bacteria 3+ /hpf (None Seen); Red Blood Cells-Urine 25-50 SEEN /hpf (0-5); Squamous Epithelial Cells - UA 5-10 SEEN /hpf (5-10); White Blood Cells 5-10 SEEN /hpf (0-5)
[2020-09-23 21:24] LABS: Amorphous Sediment 2+ URATE
[2020-09-23] MEDS: Smz/Tmp Ds Tablet 1 TABLET PO (22:25)
[2020-09-23] MEDS: Acetaminophen 500 MG Tablet 1000 MG PO (22:25)
[2020-09-23 22:31] LABS: International Normalized Ratio 1.2; Prothrombin Time (Protime)PT. 14.5 SECONDS (11.7-14.9)
[2020-09-23 22:42] LABS: Lactic Acid 1.1 mmol/L (0.4-1.9)
--- NOTE | 2020-09-23 23:04 | ED.RN ---
RN called sister for update. Then pt talking to sister on phone.
[2020-09-24 00:59] VITALS: BP 133/85; PULSE 90; RESP 18; TEMP 36.8; O2SAT 100
== END 2020-09-24 01:27 ==
PROVIDERS: Emergency Medicine; Emergency Provider Student in an Organized Health Care Education/Training Program; PCP Family Medicine
DX: F23 Brief psychotic disorder (principal); F31.9 Bipolar disorder, unspecified; N39.0 Urinary tract infection, site not specified; Z79.899 Other long term (current) drug therapy
CPT/HCPCS: 36415; 80053; 80307; 81001; 82077; 83605; 84703; 85025; 85610; 87040; 87086; 87088; 87426; 93005; 96372; 99285; A4216

== ENCOUNTER → 2021-11-09 | Outpatient (CLI) | payer MEDICARE, MEDICAID, SELFPAY ==
[2021-11-09 15:02] LABS: Absolute Lymphocyte Count 1.53 X10^3/uL (0.83-4.51); Absolute Neutrophil Count 1.6 X10^3/uL (2.0-7.7); Basophil# 0.01 X10^3/uL; Basophil% 0.3 % (0-1); Eosinophil# 0.07 X10^3/uL; Eosinophils% 1.9 % (0-5); Hematocrit 37.8 % (37-47); Hemoglobin 12.4 g/dL (12.0-15.0); Lymphocyte # 1.53 X10^3/ul (0.83-4.51); Lymphocyte % 41.8 % (19-41); Mean Corp Hgb Conc 32.8 g/dL (32-36); Mean Corpuscular Hgb 28.4 pg (27.0-32.0); Mean Corpuscular Volume 86.5 fL (81-99); Monocyte# 0.44 X10^3/uL; NRBC Flagged by Analyzer 0 % (0-5); Neutrophil % 43.7 % (47-70); Platelet Count 199 K/mm3 (150-450); RBC Distribution Width CV 13.9 % (11.6-14.6); RBC Distribution Width SD 44.3 fl (35.1-43.9); Red Blood Count 4.37 M/mm3 (4.2-5.4); White Blood Count 3.7 K/mm3 (4.4-11.0)
[2021-11-09 15:41] LABS: Hemoglobin A1c 5.7 % (3.8-5.6)
[2021-11-09 15:43] LABS: ALB/GLOB Ratio 1.1 RATIO (0.9-2.4); AST(SGOT) 18 U/L (15-37); Alanine Aminotransfer ALT/SGPT 33 U/L (13-56); Albumin, Serum 3.7 g/dL (3.2-5.0); Alkaline Phosphatase 96 U/L (45-117); Anion Gap 3 (5-15); BUN 7 mg/dL (7-18); BUN/Creat Ratio 10.6 RATIO (10-20); Calcium,Total 8.5 mg/dL (8.5-10.1); Chloride 107 mmol/L (98-107); Cholesterol 207 mg/dL (200); Creatinine, Serum 0.66 mg/dL (0.55-1.02); EST Glomerular Filtration Rate 109 mL/min (>60); Est Glom Filt Rate - Afr Amer 132 mL/min (>60); Globulin 3.4 g/dL (2.2-4.2); Glucose 88 mg/dL (74-106); High Density Lipoprotein 45 mg/dL; Potassium 3.8 mmol/L (3.5-5.1); Protein, Total 7.1 g/dL (6.4-8.2); Sodium Level 139 mmol/L (136-145); Thyroid Stim Hormone (TSH) 1.72 uIU/mL (0.358-3.74); Triglycerides 66 mg/dL; Very Low Density Lipoprotein 13 mg/dL (5-40)
== END | disposition home or self-care (01) ==
LOC: BIMLAB 14:05
PROVIDERS: PCP Internal Medicine; Referring Provider Internal Medicine; Visit Provider Internal Medicine
DX: F31.9 Bipolar disorder, unspecified (principal); Z76.89 Persons encountering health services in other specified circumstances; Z79.899 Other long term (current) drug therapy
CPT/HCPCS: 36415; 80053; 80061; 83036; 84443; 85025

== ENCOUNTER 2022-01-27 18:19 | Emergency (ER) | payer MEDICARE, MEDICAID, SELFPAY ==
[2022-01-27 18:20] VITALS: BP 111/61; PULSE 103; RESP 16; TEMP 36.1; O2SAT 100; BMI 27.2
--- NOTE | 2022-01-27 18:34 | EKG12_ITS ---
Test Reason : DYSRHYTHMIA Blood Pressure : / mmHG Vent. Rate : 097 BPM Atrial Rate : 097 BPM P-R Int : 136 ms QRS Dur : 074 ms QT Int : 340 ms P-R-T Axes : 060 061 031 degrees QTc Int : 431 ms Normal sinus rhythm Normal ECG Confirmed by FELIPE SHAIKH, CINTHYA ([id number]), continuity editor SARITA TORRES ([id number]) on 01/30/2022 8:22:14 AM Referred By: SASCHA Confirmed By:CINTHYA WANG MD
[2022-01-27 18:35] VITALS: PULSE 96; RESP 18; O2SAT 100
--- NOTE | 2022-01-27 18:35 | EX.ED.DYSGE1 ---
HPI History of Present Illness Chief Complaint: Palpitations Informant: patient Onset/Context/Timing Onset: Days Timing: Intermittent Narrative Narrative: Patient presents with sensation of racing heart whenever she goes from a sitting or lying position to standing for the past week. She states symptoms will last about 30 or 40 seconds and then resolved. She does not feel lightheaded but she will get a head throbbing sensation. She denies any recent medication changes. She is on Trileptal for seizures and states this level is not routinely monitored. [facility] Medical History Anxiety and depression Bipolar depression Headache, migraine Seizure Home Medications hydroxyzine HCl 25 mg tablet 25 mg PO QHS 11/09/21 [History Last Taken Unknown] oxcarbazepine 300 mg tablet (Trileptal) 300 mg PO BID 11/09/21 [History Last Taken Unknown] risperidone 1 mg tablet (Risperdal) 1 mg PO BID 11/09/21 [History Last Taken Unknown] Allergy/AdvReac Type Severity Reaction Status Date / Time lactose AdvReac Diarrhea Verified 01/27/22 18:19 coffee Allergy Severe SOB Uncoded 01/27/22 18:19 Family History Mother Anemia Anxiety Diabetes Hypertension Father CVA (cerebral vascular accident) Depression Hypertension Sister Anxiety Surgical History No pertinent past surgical history Social History household members: family current occupational status: disabled current occupation: bipolar Smoking Status: Never smoker Electronic Cigarette Use: not used alcohol intake: never substance use type: does not use what type of physical activity do you participate in: none do you feel safe at home: Yes ROS ROS ED Constitutional Constitutional ED: Denies chills or fever(s) Eyes Eyes: Denies change in vision or discharge from eye(s) ENT ENT ED: Denies discharge from eye(s), rhinorrhea or sore throat Cardiovascular Cardiovascular: Reports palpitations and racing heartbeat; Denies chest pain Respiratory/Chest Respiratory/Chest: Denies cough or dyspnea Gastrointestinal Gastrointestinal: Denies abdominal pain, diarrhea, nausea or vomiting Genitourinary Genitourinary ED: Denies dysuria Musculoskeletal Musculoskeletal: Denies back pain or extremity pain Integumentary Denies Abrasions or rash Neurologic Neurologic: Denies headache(s) or weakness Psychiatric Psychiatric: Denies anxiety or depression Allergic/Immunologic Allergic/Immunologic ED: Denies lip swelling or urticaria EXAM Physical Exam Const Vital Signs: 01/27/22 18:20 01/27/22 18:35 01/27/22 18:35 Temperature 96.9 F L Temperature Source Temporal Pulse Rate 103 H 96 Pulse Rate [Lying] Pulse Rate [Sitting (for 1 minute prior to obtaining)] Pulse Rate [Standing (for 1 minute prior to obtaining)] Respiratory Rate 16 18 Respiratory Effort Normal Non-Labored Blood Pressure 111/61 Blood Pressure [Lying] Blood Pressure [Sitting (for 1 minute prior to obtaining)] Blood Pressure [Standing (for 1 minute prior to obtaining)] Blood Pressure Mean 77 Blood Pressure Mean [Lying] Blood Pressure Mean [Sitting (for 1 minute prior to obtaining)] Blood Pressure Mean [Standing (for 1 minute prior to obtaining)] Pulse Ox 100 100 Oxygen Delivery Method Room Air Room Air 01/27/22 20:34 01/27/22 20:37 Temperature Temperature Source Pulse Rate 94 Pulse Rate [Lying] 93 Pulse Rate [Sitting (for 1 minute prior to obtaining)] 90 Pulse Rate [Standing (for 1 minute prior to obtaining)] 98 Respiratory Rate 16 Respiratory Effort Blood Pressure 120/77 Blood Pressure [Lying] 117/73 Blood Pressure [Sitting (for 1 minute prior to obtaining)] 118/75 Blood Pressure [Standing (for 1 minute prior to obtaining)] 122/77 H Blood Pressure Mean 91 Blood Pressure Mean [Lying] 87 Blood Pressure Mean [Sitting (for 1 minute prior to obtaining)] 89 Blood Pressure Mean [Standing (for 1 minute prior to obtaining)] 92 Pulse Ox 100 Oxygen Delivery Method Room Air Positive well nourished and well developed General Appearance ED: well developed HEENT Reports normocephalic and head/scalp atraumatic Eyes PERRL and EOMs intact bilaterally Neck supple Chest Wall inspection of chest normal and palpation of chest normal Resp normal respiratory effort and clear to auscultation bilaterally Cardio regular rate and regular rhythm GI normal to inspection, nondistended, normoactive bowel sounds Palpation: soft Extremity normal to inspection Neuro oriented x3 and no sensory deficits noted Sensorium / Orientation: alert Motor Exam: strength 5/5 throughout Psych mental status grossly normal Skin no rashes or lesions noted MDM MDM MDM Narrative Medical decision making narrative: Patient was given a liter IV fluids. Lab work obtained. Lab Data Attestation: I reviewed the patient's lab results. Labs: Laboratory Results - last 24 hr 01/27/22 01/27/22 01/27/22 18:50 18:50 18:50 WBC 5.9 RBC 2.92 L Hgb 7.9 L Hct 24.9 L MCV 85.3 MCH 27.1 MCHC 31.7 L RDW Std Deviation 40.2 RDW Coeff of Dina 13.1 Plt Count 285 MPV 10.1 Immature Gran % (Auto) 0.300 Neut % (Auto) 72.6 H Lymph % (Auto) 16.9 L [place] % (Auto) 9.0 Eos % (Auto) 1.0 Baso % (Auto) 0.2 Absolute Neuts (auto) 4.3 Absolute Lymphs (auto) 1.00 Nucleated RBC % 0 Sodium 140 Potassium 3.7 Chloride 107 Carbon Dioxide 27.0 Anion Gap 6 BUN 7 Creatinine 0.85 Estim Creat Clear Calc 87.30 Est GFR (MDRD) Af Amer 98 Est GFR (MDRD) Non-Af 81 BUN/Creatinine Ratio 8.2 L Glucose 121 H Calcium 8.5 Serum , Qual NEGATIVE Radiography Diagnostic Testing: Clinical Impression(s) from Imaging Studies Chest X-Ray 01/27/22 18:56 IMPRESSION: Normal x-ray examination of the chest. Electronically Signed: Clarke Clemens MD at 19:52 EDT , EKG Initial EKG: Attestation: I personally reviewed and interpreted this EKG as follows: Interpretation: Sinus Rhythm (Sinus at 97 with no acute ischemia.) Treatment and Re-Evaluation Narrative: CBC reveals anemia with a hemoglobin of 7.9. It appears in the past has been as low as 8.9 but then would seem to rebound. Chemistry studies unremarkable. test negative. After a liter of IV fluids were given orthostatic vital signs were performed and normal. Patient states that she feels much improved. Test results are discussed with patient and sister at bedside. They do note that she just had a rather heavy menstrual cycle, but no other sources of blood loss have been noted. We discussed eating foods rich in iron and she will follow-up with her primary care physician to ensure her blood counts are increasing appropriately. Discharge Plan Triage Chief Complaint: Palpitations ED Provider: Silvia Webb Dx/Rx/DC Orders Clinical Impression: Palpitations, Anemia Instructions: ED Anemia, Type Not Specified (Adult), ED Palpitations Prescriptions: No Action risperidone [Risperdal] 1 mg tablet 1 mg PO BID Rx Instructions: take 1 mg AM, take 2 mg QHS oxcarbazepine [Trileptal] 300 mg tablet 300 mg PO BID Rx Instructions: take 300mg in AM, take 600 mg QHS hydroxyzine HCl 25 mg tablet 25 mg PO QHS Primary Care Provider: Rachael Branch Referrals: Rachael Branch MD [Primary Care Provider] - 1-2 Weeks Disposition Disposition: Home, Self Care
[2022-01-27] MEDS: 0.9% Normal Saline 1,000 ML 1000 ML IV (18:52)
--- NOTE | 2022-01-27 18:56 | RAD_ITS ---
STUDY: X-RAY CHEST REASON FOR EXAM: Female, 36 years old. palpitations TECHNIQUE: Single AP portable view of the chest. COMPARISON: None. FINDINGS: The lungs are clear and expanded. There is no demonstrated pleural abnormality. Normal size heart. Normal mediastinum and deyvi. Normal visualized pulmonary arteries. Normal visualized aortic arch and descending thoracic aorta. Normal visualized thoracic spine. Normal visualized ribs, clavicles, and shoulders. There is no demonstrated abnormality of the visualized soft tissue structures of the upper abdomen. RAD/Chest 1 View (Portable) IMPRESSION: Normal x-ray examination of the chest. Electronically Signed: Clarke Clemens MD at 19:52 EDT ,
[2022-01-27 19:00] LABS: Absolute Neutrophil Count 4.3 X10^3/uL (2.0-7.7); Basophil# 0.01 X10^3/uL; Basophil% 0.2 % (0-1); Eosinophil# 0.06 X10^3/uL; Hematocrit 24.9 % (37-47); Hemoglobin 7.9 g/dL (12.0-15.0); Lymphocyte % 16.9 % (19-41); Mean Corp Hgb Conc 31.7 g/dL (32-36); Mean Corpuscular Hgb 27.1 pg (27.0-32.0); Mean Corpuscular Volume 85.3 fL (81-99); Mean Platelet Vol. 10.1 fl (6.2-12.0); Monocyte# 0.53 X10^3/uL; NRBC Flagged by Analyzer 0 % (0-5); Neutrophil % 72.6 % (47-70); Platelet Count 285 K/mm3 (150-450); RBC Distribution Width CV 13.1 % (11.6-14.6); RBC Distribution Width SD 40.2 fl (35.1-43.9); Red Blood Count 2.92 M/mm3 (4.2-5.4); White Blood Count 5.9 K/mm3 (4.4-11.0)
[2022-01-27 19:13] LABS: Internal QC Validated? YES +Cl - CLEAR BKGD; Pregnancy, Serum, hCG Quali. NEGATIVE Negative
[2022-01-27 19:20] LABS: Anion Gap 6 (5-15); BUN 7 mg/dL (7-18); BUN/Creat Ratio 8.2 RATIO (10-20); Calcium,Total 8.5 mg/dL (8.5-10.1); Chloride 107 mmol/L (98-107); Creatinine, Serum 0.85 mg/dL (0.55-1.02); EST Glomerular Filtration Rate 81 mL/min (>60); Est Glom Filt Rate - Afr Amer 98 mL/min (>60); Glucose 121 mg/dL (74-106); Potassium 3.7 mmol/L (3.5-5.1); Sodium Level 140 mmol/L (136-145)
[2022-01-27 20:34] VITALS: BP 120/77; PULSE 94; RESP 16; O2SAT 100
[2022-01-27 20:37] VITALS: BP 117/73; BP 118/75; BP 122/77; PULSE 90; PULSE 93; PULSE 98
[2022-01-27 21:11] VITALS: BP 127/78; PULSE 84
[2022-02-02 15:44] LABS: Trileptal-Oxcarbazepine 20 ug/mL (10-35)
== END 2022-01-27 21:11 | disposition home or self-care (01) ==
PROVIDERS: Emergency Provider Emergency Medicine; PCP Internal Medicine; Visit Provider Emergency Medicine
DX: R00.2 Palpitations (principal); R56.9 Unspecified convulsions; D64.9 Anemia, unspecified
CPT/HCPCS: 71045; 80048; 82542; 84703; 85025; 93005; 99285

== ENCOUNTER → 2023-06-21 | Outpatient (CLI) | payer MEDICARE, SELFPAY ==
[2023-06-21 12:10] LABS: Absolute Lymphocyte Count 1.47 X10^3/uL (0.83-4.51); Absolute Neutrophil Count 1.3 X10^3/uL (2.0-7.7); Basophil# 0.02 X10^3/uL; Basophil% 0.6 % (0-1); Eosinophil# 0.08 X10^3/uL; Eosinophils% 2.4 % (0-5); Hematocrit 35.4 % (37-47); Hemoglobin 10.6 g/dL (12.0-15.0); Lymphocyte # 1.47 X10^3/ul (0.83-4.51); Lymphocyte % 44.1 % (19-41); Mean Corp Hgb Conc 29.9 g/dL (32-36); Mean Corpuscular Volume 76.8 fL (81-99); Mean Platelet Vol. 10.9 fl (6.2-12.0); Monocyte# 0.43 X10^3/uL; Monocyte% 12.9 % (0-10); NRBC Flagged by Analyzer 0 % (0-5); Neutrophil # 1.32 X10^3/uL (2.7-7.7); Neutrophil % 39.7 % (47-70); Platelet Count 194 K/mm3 (150-450); RBC Distribution Width CV 18.7 % (11.6-14.6); RBC Distribution Width SD 51.4 fl (35.1-43.9); Red Blood Count 4.61 M/mm3 (4.2-5.4); White Blood Count 3.3 K/mm3 (4.4-11.0)
[2023-06-21 12:23] LABS: Hemoglobin A1c 5.9 % (3.8-5.6)
[2023-06-21 13:08] LABS: ALB/GLOB Ratio 0.9 RATIO (0.9-2.4); AST(SGOT) 15 U/L (15-37); Alanine Aminotransfer ALT/SGPT 22 U/L (13-56); Albumin, Serum 3.4 g/dL (3.2-5.0); Alkaline Phosphatase 92 U/L (45-117); Anion Gap 7 (5-15); BUN 7 mg/dL (7-18); BUN/Creat Ratio 9.9 RATIO (10-20); Calcium,Total 8.7 mg/dL (8.5-10.1); Chloride 105 mmol/L (98-107); Cholesterol 198 mg/dL (200); Creatinine, Serum 0.71 mg/dL (0.55-1.02); EST Glomerular Filtration Rate 100 mL/min (>60); Est Glom Filt Rate - Afr Amer 120 mL/min (>60); Globulin 3.8 g/dL (2.2-4.2); Glucose 87 mg/dL (74-106); High Density Lipoprotein 51 mg/dL; Potassium 4.2 mmol/L (3.5-5.1); Protein, Total 7.2 g/dL (6.4-8.2); Sodium Level 139 mmol/L (136-145); Thyroid Stim Hormone (TSH) 1.86 uIU/mL (0.358-3.74); Triglycerides 56 mg/dL; Very Low Density Lipoprotein 11 mg/dL (5-40)
[2023-06-29 05:07] LABS: Trileptal-Oxcarbazepine 17 ug/mL (10-35)
== END | disposition home or self-care (01) ==
LOC: BIMLAB 10:02
PROVIDERS: PCP Internal Medicine; Visit Provider Internal Medicine
DX: F31.9 Bipolar disorder, unspecified (principal); G40.909 Epilepsy, unspecified, not intractable, without status epilepticus; Z79.899 Other long term (current) drug therapy; R14.0 Abdominal distension (gaseous)
CPT/HCPCS: 36415; 80053; 80061; 82542; 83036; 84443; 85025

== ENCOUNTER → 2023-07-12 | Outpatient (CLI) | payer MEDICARE, MEDICAID, SELFPAY ==
[2023-07-18 17:07] LABS: Trileptal-Oxcarbazepine 19 ug/mL (10-35)
== END | disposition home or self-care (01) ==
LOC: BIMLAB 08:52
PROVIDERS: PCP Internal Medicine; Visit Provider Physician Assistant
DX: R56.9 Unspecified convulsions (principal)
CPT/HCPCS: 36415; 82542

== ENCOUNTER → 2023-11-20 | Outpatient (CLI) | payer MEDICARE, MEDICAID, SELFPAY ==
--- NOTE | 2023-11-20 09:53 | US_ITS ---
INDICATION: abdominal bloating EXAMINATION: Ultrasound US Abdomen Complete TECHNIQUE: Summers-scale and color Doppler imaging was performed of the abdomen. COMPARISON: No relevant prior comparison study available FINDINGS: LIVER: There is normal echotexture. No focal hepatic lesion. No intrahepatic biliary ductal dilatation. There is no free fluid. GALLBLADDER AND BILIARY TREE: No shadowing gallstone, pericholecystic fluid or gallbladder wall thickening is demonstrated. The proximal common bile duct measures 4.4 mm, which is within normal limits for the patient''s age. SONOGRAPHIC CASTREJON''S SIGN: Negative. PANCREAS: No focal abnormality is demonstrated in the pancreas. No pancreatic ductal dilatation. SPLEEN: The spleen is normal in size and homogeneous in echotexture. KIDNEYS: There is no hydronephrosis. No shadowing calculus, focal lesion, or perinephric collection is demonstrated. VESSELS: Submitted longitudinal images of the intra-abdominal aorta demonstrate no gross abnormalities and are unremarkable. The IVC is patent. US/Abdomen Complete IMPRESSION: No acute sonographic abnormality is demonstrated in the abdomen. Electronically Signed: Brandy Mccray MD at 8:05 EDT ,
== END | disposition home or self-care (01) ==
PROVIDERS: PCP Internal Medicine; Referring Provider Internal Medicine; Visit Provider Internal Medicine
DX: R14.0 Abdominal distension (gaseous) (principal)
CPT/HCPCS: 76700

== ENCOUNTER 2024-04-26 17:39 | Emergency (ER) | payer MEDICARE, MEDICAID, SELFPAY ==
[2024-04-26 17:40] VITALS: BP 129/76; PULSE 89; RESP 16; TEMP 36.3; O2SAT 100; BMI 29.2
--- NOTE | 2024-04-26 17:49 | EX.ED.DYSGE1 ---
HPI History of Present Illness Chief Complaint: Anxiety Informant: patient Onset/Context/Timing Onset: Today Context: Sudden Onset Timing: Intermittent Quality: Weak, eyes rolling Location: Generalized Worsened by: Stress Relieved by: Nothing Narrative Narrative: Patient presents with generalized weakness and a fall that occurred today. Patient states that she was shopping with her brother and started to feel weak. Patient states she was able to go home. Patient states she then began hyperventilating and fell to the ground. Patient denies any loss of consciousness. Patient's sister witnessed the event. She was able to get to her immediately and noticed her eyes rolling but did not have any loss of consciousness. Patient remembers entire event. Patient states she was having some increased stress today because she had to reset her phone to factory settings. Patient states she was having difficulty remembering her password. [facility] Medical History Iron deficiency anemia Anxiety and depression Seizure Headache, migraine Bipolar depression Home Medications ?Medication ?Instructions ?Recorded ?Last Taken ?Type hydroxyzine HCl 25 mg tablet 25 mg PO QHS 11/09/21 Unknown History risperidone 1 mg tablet (Risperdal) 1 mg PO BID 11/09/21 Unknown History ferrous sulfate 325 mg (65 mg 325 mg PO DAILY #30 TABLETS 03/03/24 Unknown Rx iron) tablet (FeroSul) oxcarbazepine 600 mg tablet 600 mg PO DAILY 04/26/24 Unknown History Allergy/AdvReac Type Severity Reaction Status Date / Time coffee (Coffea arabica) Allergy Shortness Verified 04/26/24 17:42 of breath lactose AdvReac Diarrhea Verified 04/26/24 17:42 Family History Mother Anemia Anxiety Diabetes Hypertension Father CVA (cerebral vascular accident) Depression Hypertension Sister Anxiety Surgical History no surgical history no surgical history Social History household members: family current occupational status: disabled current occupation: bipolar Smoking Status: Never smoker Electronic Cigarette Use: not used alcohol intake: never substance use type: does not use what type of physical activity do you participate in: none do you feel safe at home: Yes ROS ROS ED Constitutional Constitutional ED: Denies chills or fever(s) Eyes Eyes: Denies blurry vision or change in vision ENT ENT ED: Denies rhinorrhea or sore throat Cardiovascular Cardiovascular: Reports chest pain; Denies palpitations Respiratory/Chest Respiratory/Chest: Denies cough or dyspnea Gastrointestinal Gastrointestinal: Denies nausea or vomiting Genitourinary Genitourinary ED: Denies dysuria or hematuria Musculoskeletal Musculoskeletal: Reports back pain; Denies neck pain Integumentary Denies abscess or rash Neurologic Neurologic: Denies headache(s) or weakness Allergic/Immunologic Allergic/Immunologic ED: Denies mouth swelling or urticaria EXAM Physical Exam Const Vital Signs: 04/26/24 17:40 04/26/24 19:40 Temperature 97.4 F L Temperature Source Temporal Pulse Rate 89 80 Respiratory Rate 16 16 Blood Pressure 129/76 H 124/89 H Blood Pressure Mean 93 100 Pulse Ox 100 98 Oxygen Delivery Method Room Air Room Air Positive well nourished and well developed General Appearance ED: well developed and NAD HEENT Reports moist mucous membranes Neck supple and no JVD Resp normal respiratory effort and clear to auscultation bilaterally Cardio regular rate and regular rhythm GI non-tender and non-distended Palpation: soft Extremity normal to inspection General Extremety ED: Negative for edema or tenderness General Extremity: Negative for edema Neuro oriented x3, CN's II-XII intact bilaterally and no sensory deficits noted Sensorium / Orientation: alert Motor Exam: strength 5/5 throughout Psych mental status grossly normal MDM MDM MDM Narrative Medical decision making narrative: Differential diagnosis includes nonepileptic seizures, anxiety, electrolyte abnormality, dehydration, and hyperventilation. CBC will be obtained to assess for leukocytosis and anemia. Basic metabolic profile will be obtained to assess for electrolyte abnormality and renal function. Serum hCG will be obtained to assess for . Urinalysis will be obtained to assess for urinary tract infection and hematuria. Lab Data Attestation: I reviewed the patient's lab results. Lab results narrative: CBC was reviewed. There is a mild anemia with a hemoglobin of 11.4 and hematocrit 34.8. The remainder is within normal limits. Basic metabolic profile was reviewed and was within normal limits. Serum hCG was reviewed and was negative. Urinalysis was reviewed. There is no evidence of urinary tract infection or hematuria. Labs: Laboratory Results - last 24 hr 01/25/25 01/25/25 01/25/25 18:28 18:28 20:32 WBC Cancelled 5.2 Corrected WBC Cancelled RBC Cancelled 4.06 L Hgb Cancelled 11.4 L Hct Cancelled 34.8 L MCV Cancelled 85.7 MCH Cancelled 28.1 MCHC Cancelled 32.8 RDW Std Deviation Cancelled 40.5 RDW Coeff of Dina Cancelled 13.1 Plt Count Cancelled 182 MPV Cancelled 10.3 Immature Gran % (Auto) Cancelled 0.200 Neut % (Auto) Cancelled 54.0 Lymph % (Auto) Cancelled 33.2 [place] % (Auto) Cancelled 11.6 H Eos % (Auto) Cancelled 0.8 Baso % (Auto) Cancelled 0.2 Absolute Neuts (auto) Cancelled 2.8 Absolute Lymphs (auto) Cancelled 1.72 Total Counted Cancelled Neutrophils % (Manual) Cancelled Band Neutrophils % Cancelled Lymphocytes % (Manual) Cancelled Monocytes % (Manual) Cancelled Eosinophils % (Manual) Cancelled Basophils % (Manual) Cancelled Metamyelocytes % Cancelled Myelocytes % Cancelled Promyelocytes % Cancelled Blast Cells % Cancelled Plasma Cell % (Manual) Cancelled Other Cells % Cancelled Nucleated RBC % Cancelled 0 Nucleated RBCs/100 WBC Cancelled Differential Comment Cancelled Diff Path Review Cancelled Hypersegmented Neuts Cancelled Atypical Lymphocytes Cancelled Reactive Lymphocytes Cancelled Smudge Cells Cancelled Toxic Granulation Cancelled Toxic Vacuolation Cancelled Dohle Bodies Cancelled Silverio Rods Cancelled Platelet Estimate Cancelled Plt Morphology Comment Cancelled RBC Morphology Cancelled Cancelled Polychromasia Cancelled Hypochromasia Cancelled Basophilic Stippling Cancelled Anisocytosis Cancelled Microcytosis Cancelled Macrocytosis Cancelled Spherocytes Cancelled Sickle Cells Cancelled Target Cells Cancelled Tear Drop Cells Cancelled Ovalocytes Cancelled Stomatocytes Cancelled [place] Bodies Cancelled [place] Cells Cancelled Bite Cells Cancelled Crenated Cell Cancelled Acanthocytes (Spur) Cancelled Rouleaux Cancelled Schistocytes Cancelled Sodium 134 L Potassium 4.2 Chloride 104 Carbon Dioxide 24.0 Anion Gap 6 BUN 8 Creatinine 0.82 Estim Creat Clear Calc 101.56 Est GFR (MDRD) Af Amer 101 Est GFR (MDRD) Non-Af 84 BUN/Creatinine Ratio 9.8 L Glucose 136 H Calcium 8.8 Serum , Qual NEGATIVE Urine Color Yellow Urine Clarity Clear Urine pH 7.0 Ur Specific [place] 1.010 Urine Protein Negative Urine Glucose (UA) Normal Urine Ketones Negative Urine Occult Blood 50 H Urine Nitrite Negative Urine Bilirubin Negative Urine Urobilinogen Normal Ur Leukocyte Esterase 25 H Urine RBC Not Reportable Urine WBC 0-5 SEEN Ur Squamous Epith Cells 0-5 SEEN Urine Bacteria 0 SEEN Urine Mucus 0 SEEN Treatment and Re-Evaluation :: Patient was given IV fluids. Patient was advised of her findings. Patient was instructed to drink plenty of fluids. Patient was instructed to follow-up with her primary care physician in 5 to 7 days. Patient understood and was agreeable with the plan. All questions were answered. Discharge Plan Triage Chief Complaint: Anxiety ED Provider: Pancho Muro Dx/Rx/DC Orders Clinical Impression: Near syncope, Anxiety Instructions: ED Anxiety Reaction, ED Near-Fainting, Uncertain Cause Prescriptions: No Action risperidone [Risperdal] 1 mg tablet 1 mg PO BID Rx Instructions: take 1 mg AM, take 2 mg QHS hydroxyzine HCl 25 mg tablet 25 mg PO QHS oxcarbazepine 600 mg tablet 600 mg PO DAILY ferrous sulfate [FeroSul] 325 mg (65 mg iron) tablet 325 mg PO DAILY Qty: 30 2RF Primary Care Provider: Rachael Branch Referrals: Rachael Branch MD [Primary Care Provider] - 3-5 Days Print Language: Filipino Disposition Disposition: Home, Self Care
[2024-04-26 18:34] LABS: Bacteria 0 SEEN /hpf (None Seen); Mucous, Urine 0 SEEN /hpf (<or=2+)
[2024-04-26 18:36] LABS: Color, Urine Yellow (Yellow); Glucose, Dipstick Normal (Normal); Ketone-Dipstick Negative (Negative); Leukocyte Esterase-Dipstick 25 /ul (Negative); Nitrite-Dipstick Negative (Negative); Occult Blood-Urine 50 /ul (Negative); Protein-Dipstick Negative (Negative); Urine Bilirubin Dipstick Negative (Negative); Urine Clarity Clear (Clear); Urine Urobilinogen Normal (Normal)
[2024-04-26] MEDS: 0.9% Normal Saline (1000mL) 1,000 ML 1000 ML IV (18:40)
[2024-04-26 18:44] LABS: Internal QC Validated? YES +Cl - CLEAR BKGD; Pregnancy, Serum, hCG Quali. NEGATIVE Negative
[2024-04-26 18:51] LABS: Anion Gap 6 (5-15); BUN 8 mg/dL (7-18); BUN/Creat Ratio 9.8 RATIO (10-20); Calcium,Total 8.8 mg/dL (8.5-10.1); Chloride 104 mmol/L (98-107); Creatinine, Serum 0.82 mg/dL (0.55-1.02); EST Glomerular Filtration Rate 84 mL/min (>60); Est Glom Filt Rate - Afr Amer 101 mL/min (>60); Estimated Creatinine Clearance 101.56 ml/min; Glucose 136 mg/dL (74-106); Potassium 4.2 mmol/L (3.5-5.1); Sodium Level 134 mmol/L (136-145); Squamous Epithelial Cells - UA 0-5 SEEN /hpf (5-10)
[2024-04-26 18:52] LABS: White Blood Cells 0-5 SEEN /hpf (0-5)
[2024-04-26 19:40] VITALS: BP 124/89; PULSE 80; RESP 16; O2SAT 98
[2024-04-26 20:39] LABS: Absolute Lymphocyte Count 1.72 X10^3/uL (0.83-4.51); Absolute Neutrophil Count 2.8 X10^3/uL (2.0-7.7); Basophil# 0.01 X10^3/uL; Basophil% 0.2 % (0-1); Eosinophil# 0.04 X10^3/uL; Eosinophils% 0.8 % (0-5); Hematocrit 34.8 % (37-47); Hemoglobin 11.4 g/dL (12.0-15.0); Lymphocyte # 1.72 X10^3/ul (0.83-4.51); Lymphocyte % 33.2 % (19-41); Mean Corp Hgb Conc 32.8 g/dL (32-36); Mean Corpuscular Hgb 28.1 pg (27.0-32.0); Mean Corpuscular Volume 85.7 fL (81-99); Mean Platelet Vol. 10.3 fl (6.2-12.0); Monocyte% 11.6 % (0-10); NRBC Flagged by Analyzer 0 % (0-5); Platelet Count 182 K/mm3 (150-450); RBC Distribution Width CV 13.1 % (11.6-14.6); RBC Distribution Width SD 40.5 fl (35.1-43.9); Red Blood Count 4.06 M/mm3 (4.2-5.4); White Blood Count 5.2 K/mm3 (4.4-11.0)
[2024-04-26 21:00] VITALS: BP 122/80; PULSE 65; RESP 16; TEMP 36.6; O2SAT 99
== END 2024-04-26 21:07 | disposition home or self-care (01) ==
PROVIDERS: Emergency Provider Emergency Medicine; PCP Internal Medicine; Visit Provider Emergency Medicine
DX: R55 Syncope and collapse (principal); F31.9 Bipolar disorder, unspecified; F41.9 Anxiety disorder, unspecified; Z79.899 Other long term (current) drug therapy
CPT/HCPCS: 80048; 81001; 84703; 85025; 96360; 99283; A4216